=== PATIENT | female | born 1945 | race Caucasian/White ===

== ENCOUNTER 2017-06-04 11:55 | Outpatient (CLI) | payer MEDICARE, OTHER ==
--- NOTE | 2017-06-04 13:05 | MRI Report ---
EXAM: MRI LUMBAR SPINE WITHOUT CONTRAST EXAM DATE: 06/04/2017 12:43 PM. CLINICAL HISTORY: 72-year-old with back pain and bilateral feet numbness with numbness extending to l egs COMPARISON: None. TECHNIQUE: Multiplanar, multisequence T1-weighted and fluid-sensitive sequences of the lumbar spine f rom T12 to S1 without contrast. Other: None. FINDINGS: Spinal Cord: The conus terminates at L1-L2. The conus medullaris and cauda equina are unremarkable. Alignment: There is 2-3 mm of grade I retrolisthesis of L1 on L2, L2 on L3, and L3 on L4. Bone Marrow: Five dta-idi-cnczuhp lumbar vertebral bodies are assumed. There is a chronic-appearing L 1 vertebral body compression fracture with approximately 35% vertebral body height loss anteriorly. N o bony retropulsion. No acute fracture. There appears to be a vertebral body hemangioma seen involvin g the left aspect of the L2 vertebral body with involvement of the left pedicle. There appears to be a vertebral body hemangioma within the L4 vertebral body with evidence of STIR signal hyperintensity suggesting potential atypical hemangioma. No other marrow replacing lesion. There is ongoing Schmorl' s node formation seen along the superior endplate of L4 and superior endplate of L5. Disk Levels/Facets: T12-L1: Moderate endplate degenerative change and Schmorl's node formation. Mild loss of disk height and disk desiccation. Small posterior disk bulge and bilateral arthritic facet disease. Minimal spina l canal stenosis. No significant neural foraminal narrowing. L1-L2: Mild to moderate endplate degenerative change and Schmorl's node formation. Mild to moderate l oss of disk height and disk desiccation. Small posterior disk bulge, ligamentum flavum thickening, ar thritic facet disease, and prominent dorsal epidural fat. Mild spinal canal stenosis. Minimal bilater al neural foraminal narrowing. L2-L3: Mild end plate degenerative change with Schmorl's node formation. Mild to moderate loss of dis k height and disk desiccation. Small posterior disk bulge, ligamentum flavum thickening, arthritic fa cet disease, and prominent dorsal epidural fat. Fluid is seen within the facets bilaterally. Mild spi nal canal stenosis. Mild bilateral neural foraminal narrowing. L3-L4: Minimal to mild degenerative change and Schmorl's node formation. Mild loss of disk I fundus d esiccation. Small posterior disk bulge, ligament thickening, and arthritic facet disease. Slight effa cement of the lateral recesses. Mild bilateral neural foraminal narrowing. L4-L5: Mild endplate degenerative change and Schmorl's node formation. Mild loss of disk height and d isk desiccation. Small posterior disk bulge with superimposed left foraminal to far lateral disk prot rusion. Ligamentum flavum thickening, arthritic facet disease, and prominent dorsal tilt. Mild spinal canal stenosis and effacement of the lateral recesses. Hmnh-kz-xtniulze right and moderate left neur al foraminal narrowing. L5-S1: Minimal endplate degenerative change with mild loss of disk height and disk desiccation. Small posterior disk bulge and arthritic facet disease. Effacement of lateral recesses with contact of the traversing left S1 nerve root. Minimal bilateral neural foraminal narrowing. Musculature: Moderate fatty atrophy of the multifidus muscles beginning at L4 and extending to the sa maylin. Other: The partially visualized retroperitoneum is unremarkable. IMPRESSION: 1. There is 2-3 mm of grade I retrolisthesis of L1 on L2, L2 on L3, and L3 on L4. 2. There is a chronic-appearing L1 vertebral body compression fracture with approximately 35% vertebr al body height loss anteriorly. No bony retropulsion. 3. At L4-L5 there is a small left foraminal and far lateral disk protrusion. 4. Multilevel degenerative changes. L1-L2: Mild spinal canal stenosis. Minimal bilateral neural foraminal narrowing. L2-L3: Mild spinal canal stenosis. Mild bilateral neural foraminal narrowing. L3-L4: Slight effacement of the lateral recesses. Mild bilateral neural foraminal narrowing. L4-L5: Mild spinal canal stenosis and effacement of the lateral recesses. Qwor-ci-yljrsgbx right and moderate left neural foraminal narrowing. L5-S1: Effacement of lateral recesses with contact of the traversing left S1 nerve root. Minimal bila teral neural foraminal narrowing. Comment: The following findings are so common in adults without low back pain that while we report th eir presence, they must be interpreted with caution and in the context of the clinical situation. (Re arpit Poe et al, Spine 2001) Prevalence of findings in patients without low back pain: Disk degeneration (any evidence): 92% Disk desiccation/T2 signal loss: 83% Disk height loss: 56% Disk bulge: 64% Disk protrusion: 32% Annular tear/high intensity zone: 38% [facility] Referring Provider Line: [phone] SITE ID: [id number]
== END 2017-06-04 11:56 | disposition home or self-care (01) ==
LOC: DI 11:55
PROVIDERS: ATTEND Internal Medicine
DX: M51.36 Other intervertebral disc degeneration, lumbar region (principal); M47.896 Other spondylosis, lumbar region; M51.26 Other intervertebral disc displacement, lumbar region; M43.16 Spondylolisthesis, lumbar region; M48.56XD Collapsed vertebra, not elsewhere classified, lumbar region, subsequent encounter for fracture with routine healing; M51.37 Other intervertebral disc degeneration, lumbosacral region; M47.897 Other spondylosis, lumbosacral region
CPT/HCPCS: 72148

== ENCOUNTER 2017-06-13 14:08 | Outpatient (CLI) | payer MEDICARE, OTHER ==
--- NOTE | 2017-06-13 18:31 | Ultrasound Report ---
LEFT BREAST ULTRASOUND: 06/13/2017 CLINICAL INDICATION: Painful palpable abnormality left lower outer posterior breast. TECHNIQUE: Real-time scanning was performed with hvac sales representative static images obtained. FINDINGS: Ultrasound of the painful palpable region identified by the patient was performed. Unremarkable parenchymal lobules are seen. No discrete solid or cystic mass is identified. No sonographically suspicious findings are seen. IMPRESSION: NEGATIVE EXAMINATION. RECOMMENDATION: Routine annual screening unless otherwise clinically indicated. BIRADS category: 1, negative. TD: 06/13/2017 18:30
--- NOTE | 2017-06-13 18:39 | Mammography Report ---
DIGITAL DIAGNOSTIC BILATERAL MAMMOGRAM: 06/13/2017 CLINICAL INDICATION: Painful palpable abnormality left lower outer posterior breast. TECHNIQUE: Bilateral CC and MLO views, left true lateral and laterally exaggerated craniocaudal views. A marker was placed at the site of tender palpable abnormality identified by the patient in the left lower outer posterior breast. COMPARISON: 01/24/2015, 12/09/2004, 01/28/2004. FINDINGS: The breasts demonstrate scattered fibroglandular densities bilaterally. Coarse and punctate, typically benign calcifications are present. No suspicious masses, clustered microcalcifications, or regions of architectural distortion are identified. Please also refer to left breast ultrasound of the same day. IMPRESSION: BENIGN FINDINGS. RECOMMENDATION: Routine annual screening unless otherwise clinically indicated. BIRADS category 2 benign findings. STANDARD QUALIFYING STATEMENTS 1. This examination was reviewed with the aid of Computed-Aided Detection (CAD). 2. A negative or benign imaging report should not delay biopsy if clinically suspicious findings are present. Consider surgical consultation if warranted. More than 5% of cancers are not identified by imaging. 3. Dense breasts may obscure an underlying neoplasm. TD: 06/13/2017 18:38
== END 2017-06-13 14:09 | disposition home or self-care (01) ==
LOC: DI 14:08
PROVIDERS: ATTEND Internal Medicine
DX: N63.23 Unspecified lump in the left breast, lower outer quadrant (principal)
CPT/HCPCS: 76642; 77066

== ENCOUNTER 2017-07-23 08:44 | Day surgery (SDC) | payer MEDICARE, OTHER ==
[~2017-07-23 08:44] MED LIST: ceFAZolin 2 GM/50 ML 2 GM/50 ML BAG IV ONE
[2017-07-23] MEDS ORDERED: LACTATED RINGERS 1,000 ML IV ONE (08:49)
[2017-07-23] MEDS ORDERED: BUPIVACAINE 0.5% PF 30 ML VIAL ONE (11:00)
[2017-07-23] MEDS ORDERED: BUPIVACAINE 0.5%-EPI 1:200000 PF 30 ML VIAL SUBQ ONE (11:02)
[2017-07-23] MEDS ORDERED: PROPOFOL 200 MG/20 ML VIAL IVP ONE (11:15)
[2017-07-23] MEDS ORDERED: fentaNYL 100 MCG/2 ML VIAL IVP ONE (11:15)
[2017-07-23] MEDS ORDERED: ONDANSETRON 4 MG/2 ML VIAL IVP ONE (11:15)
[2017-07-23] MEDS ORDERED: DEXAMETHASONE 4 MG/ML VIAL IVP ONE (11:15)
--- NOTE | 2017-07-23 11:49 | OPERATIVE REPORT ---
Operative Report - General Procedure Date: 07/23/17 Planned Procedure: LEFT excisional breast biopsy Pre-Op Diagnosis: Painful LEFT breast mass Procedure Performed: LEFT excisional breast biopsy Post Op Diagnosis: Same - Procedure Note Primary Surgeon: Eleuterio Mora MD Anesthesia Provider: Neha Walker CRNA Anesthesia Technique: General ET tube, Local (30 mL 1/2% marcaine) IV Fluids (mL): 600 Estimated Blood Loss (mL): 5 Complications: None. - Other Other Information/Narrative: OPERATIVE DESCRIPTION/REPORT: After verbal and written informed consent was obtained detailing the risks of infection, bleeding requiring transfusion with its risks, nerve injury, and , and after I met with the patient confirming the surgery and the site of the surgery and after initialing the site of the surgery with a surgical marker , the patient was brought to the operative suite and placed supine on the operating table. Great care was taken to avoid pressure points to prevent pressure necrosis or nerve injury. Monitoring devices were applied along with TEDs and pneumatic compressive stockings (to prevent DVT). The patient received preoperative antibiotics for surgical prophylaxis. Neha Walker sedated and anethetized the patient for the entire procedure. The patient was prepped and draped in the usual sterile manner. With the patient draped my initials were clearly visible. A "time in" then confirmed that the patient was identified with 3 identifiers (name, birthdate and medical record number), the history and physical was in the chart, the signed consent confirming the procedure was in the chart, the patient was in the correct position, the aforementioned prophylactic measures were in place or given, we had the correct personnel and equipment to complete the procedure and that anesthesia, surgery and nursing were given an opportunity to express any concerns. With the agreement of everyone in the room, we proceeded with the operation. After adequate local anesthesia was administered using 1/2% marcaine, the skin overlying the mass was incised in a curvilinear fashion. Dissection down to the mass was performed using a combination of Metzenbaum scissors and Bovie electrocautery. Every attempt was made to get approximately 1 cm of normal tissue around the lesion. The specimen was marked with a long stitch laterally , a short stitch superiorly and a double stitch deep. Meticulous hemostasis was obtained using Bovie electrocautery. The subcutaneous tissues were approximated using interrupted 2-0 Vicryl. The skin incision was approximated with 4-0 Monocryl in a subcuticular fashion. The skin was prepped with benzoin and steristrips were applied. A dressing was then applied. At this point a time out was performed that confirmed that all the counts were correct, the procedure that was performed, the blood loss, the IV fluids administered, and the patients condition. Having tolerated the procedure well, the patient was subsequently taken to recovery room in good and stable condition.
[2017-07-23 12:38] VITALS: BP 114/10
== END 2017-07-23 08:45 | disposition home or self-care (01) ==
LOC: SDS 08:44
PROVIDERS: ATTEND Surgery
PROC: 0HBU0ZX Excision of Left Breast, Open Approach, Diagnostic (ICD-10-PCS; principal; 2017-07-23 10:00)
DX: N63.24 Unspecified lump in the left breast, lower inner quadrant (principal); N63.23 Unspecified lump in the left breast, lower outer quadrant; N64.4 Mastodynia; N60.22 Fibroadenosis of left breast; R92.0 Mammographic microcalcification found on diagnostic imaging of breast
CPT/HCPCS: 19120; J0690; J7120; 88307

== ENCOUNTER 2018-05-05 08:40 | Outpatient (CLI) | payer MEDICARE, OTHER ==
--- NOTE | 2018-05-05 11:01 | CT Report ---
Reason: NEW ONSET HEAD ACHES Procedure Date: 05/05/2018 Accession Number: [id number] / [id number] Procedure: CT - Head W/O CPT Code: FULL RESULT: EXAM: CT HEAD EXAM DATE: 05/05/2018 09:11 AM. CLINICAL HISTORY: New onset headaches. COMPARISON: HEAD W/O 04/11/2013 10:18 PM. TECHNIQUE: Multiaxial CT images were obtained from the foramen magnum to the vertex. Reformats: Sagittal and coronal. IV contrast: None. In accordance with CT protocol optimization, one or more of the following dose reduction techniques were utilized for this exam: automated exposure control, adjustment of mA and/or KV based on patient size, or use of iterative reconstructive technique. FINDINGS: Parenchyma: No intraparenchymal hemorrhage. No evidence of mass, midline shift, or CT findings of infarction. Lopez-white differentiation is distinct. Extraaxial Spaces: Normal for age. No subdural or epidural collections identified. Ventricles: Normal in size and position. Sinuses and Orbits: There is partial opacification of the floor of the right maxillary sinus, not fully visualized. The imaged orbits and mastoids are unremarkable. Bones: No evidence of fracture or calvarial defect. Other: None. IMPRESSION: Right maxillary sinusitis, incompletely imaged. [facility]
== END 2018-05-05 08:41 | disposition home or self-care (01) ==
LOC: DI 08:40
PROVIDERS: ATTEND Internal Medicine
DX: J32.0 Chronic maxillary sinusitis (principal)
CPT/HCPCS: 70450

== ENCOUNTER 2018-07-08 12:50 | Outpatient (CLI) | payer MEDICARE, OTHER ==
--- NOTE | 2018-07-10 09:36 | DEXA Report ---
Reason: OSTEOPENIA Procedure Date: 07/08/2018 Accession Number: [id number] / [id number] Procedure: DEX - Dexa Spine and/or Hip CPT Code: FULL RESULT: EXAM: Dexa Spine and/or Hip DATE: 07/08/2018 1:33 PM CLINICAL HISTORY: OSTEOPENIA TECHNIQUE: Dual energy x-ray absorptiometry (DXA) was performed on a [employer] System. Regions measured are the AP Spine, femoral neck, and if needed forearm. COMPARISON: None. In accordance with the International Society for Clinical Densitometry (ISCD) guidelines, data from previous exams may be reanalyzed using current recommendations and techniques. This is done to allow a more accurate basis for comparison with the current study. FINDINGS: The data for the lumbar spine is as follows: BMD (g/cm/cm) T-SCORE Z-SCORE REGION L1 0.998 -1.1 0.1 L2 0.938 -2.2 -1.0 L3 0.878 -2.7 -1.4 L4 0.930 -2.3 -1.0 TOTAL 0.934 -2.0 -0.8 NOTE: All evaluable vertebrae are used for classification The data for the hip is as follows: BMD (g/cm/cm) T-SCORE Z-SCORE REGION Neck 0.805 -1.7 -0.1 TOTAL 0.708 -2.4 -1.0 NOTE: The femoral neck or total proximal femur, whichever is lowest, is used for classification. IMPRESSION: THE WHO CLASSIFICATION BASED ON THE INTERNATIONAL REFERENCE STANDARD IS OSTEOPENIA. THE FRACTURE RISK IS INCREASED. RECOMMENDATION: Patients with diagnosis of osteoporosis or osteopenia should have regular bone mineral density assessment. For those eligible for Medicare, routine testing is allowed once every 2 years. Testing frequency can be increased for patients who have rapidly progressing disease or for those who are receiving medical therapy to restore bone mass. COMMENT: World Health Organization (WHO) definitions for osteoporosis and osteopenia: NORMAL BMD: T-score at -1.0 or higher, fracture risk is low OSTEOPENIA BMD: T-score between -1.0 and -2.5, fracture risk is increased. OSTEOPOROSIS BMD: T-score at -2.5 or lower, fracture risk is high. National Osteoporosis Foundation recommends: 1. Obtain adequate dietary calcium (at least 1200 mg per day) and vitamin D (400-800 international units per day). 2. Participate, as appropriate, in regular weightbearing and muscle-strengthening exercise. 3. Avoid tobacco use and reduce alcohol and caffeine intake. 4. For more detailed information see the website at www.NOF.org.
== END 2018-07-08 12:51 | disposition home or self-care (01) ==
LOC: DI 12:50
PROVIDERS: ATTEND Internal Medicine
DX: M85.89 Other specified disorders of bone density and structure, multiple sites (principal)
CPT/HCPCS: 77080

== ENCOUNTER 2018-07-08 12:52 | Outpatient (CLI) | payer MEDICARE, OTHER ==
--- NOTE | 2018-07-08 15:27 | Mammography Report ---
Reason: SCREENING MAMMO Procedure Date: 07/08/2018 Accession Number: [id number] / [id number] Procedure: MAGGIE - Screening Mammo w/Otto CPT Code: FULL RESULT: EXAM: Screening Mammo w/Otto DATE: 07/08/2018 2:11 PM CLINICAL HISTORY: Screening encounter. History of benign painful lump removal from the left breast. TECHNIQUE: Bilateral CC and MLO views were obtained. COMPARISON: 06/13/2017 and 01/24/2015. FINDINGS: The breasts demonstrate heterogeneously dense fibroglandular parenchyma bilaterally. Postsurgical changes are seen in the left breast. No suspicious masses, clustered microcalcifications, or regions of architectural distortion are identified. IMPRESSION: Benign findings RECOMMENDATION: Routine annual screening unless otherwise clinically indicated. BIRADS CATEGORY 2: Benign findings STANDARD QUALIFYING STATEMENTS: 1. This examination was not reviewed with the aid of Computer-Aided Detection (CAD). 2. A negative or benign imaging report should not delay biopsy if clinically suspicious findings are present. Consider surgical consultation if warrented. More than 5% of cancers are not identified by imaging. 3. Dense breasts may obscure an underlying neoplasm. 4. This examination was reviewed with the aid of 3D breast imaging (tomosynthesis).
== END 2018-07-08 12:53 | disposition home or self-care (01) ==
LOC: DI 12:52
PROVIDERS: ATTEND Internal Medicine
DX: Z12.31 Encounter for screening mammogram for malignant neoplasm of breast (principal)
CPT/HCPCS: 77063; 77067

== ENCOUNTER 2019-09-02 16:39 | Outpatient (CLI) | payer MEDICARE, OTHER | END 2019-09-02 16:40 | disposition home or self-care (01) | LOC: COV 16:39 | PROVIDERS: ATTEND Family Medicine | DX: R50.9 Fever, unspecified (principal); R06.02 Shortness of breath; R53.83 Other fatigue | CPT/HCPCS: 81599 ==

== ENCOUNTER 2019-11-30 09:36 | Outpatient (CLI) | payer MEDICARE, OTHER ==
--- NOTE | 2019-12-01 08:31 | Ultrasound Report ---
LIMITED ULTRASOUND OF LEFT BREAST: 11/30/2019 CLINICAL: Palpable left breast lump and focal pain. Comparison is made to exams dated: 11/30/2019 mammogram, 07/08/2017 mammogram, 06/13/2017 ultrasound, 06/13/2017 mammogram, 01/24/2015 mammogram - [facility], and 10/24/2012 mammogram - [facility]. Real-time ultrasound of the left breast 3 o'clock region was performed. Lopez scale images of the re al-time examination were reviewed. No significant abnormalities were seen sonographically in the left breast. IMPRESSION: NEGATIVE There is no sonographic evidence of malignancy. There is no abnormality seen in the left breast to correspond with the area of clinical concern and p alpable abnormality indicated by triangular marker at 3 o'clock in the posterior depth, however, jammie mmend clinical followup for persistent or worsening symptoms and/or development of any clinically mirtha picious findings. A 1 year screening mammogram is recommended. Findings and recommendations were conveyed to the patient during today's visit. This exam was interpreted at Station ID: [id number]. Electronically Signed By: Spencer Hung M.D. aty/:11/30/2019 11:55:25 Ultrasound BI-RADS: 1 Negative BI-RADS CATEGORY: (1) - 1 RECOMMENDATION: (ANNUAL) - Recommend routine annual screening mammography. [id number] 1 year screening LATERALITY: (B)
--- NOTE | 2019-12-01 08:31 | Mammography Report ---
BILATERAL DIGITAL DIAGNOSTIC MAMMOGRAM 3D/2D: 11/30/2019 CLINICAL: Palpable left breast lump. Comparison is made to exams dated: 07/08/2017 mammogram, 06/13/2017 ultrasound, 06/13/2017 mammogram, 03/2015 mammogram - [facility], 10/24/2012 mammogram, and 12/07/2008 mammogram - [facility]. The tissue of both breasts is heterogeneously dense. This may lower the sensitivity of mammography. There are benign calcifications in both breasts that are not significantly changed. The left breast has stable post-operative findings. No significant masses, calcifications, or other findings are seen in either breast. IMPRESSION: INCOMPLETE: NEEDS ADDITIONAL IMAGING EVALUATION There is no abnormality seen in the left breast to correspond with the area of clinical concern and palpable abnormality indicated by triangular marker at 3 o'clock in the posterior depth. However, fu rther evaluation with sonogram is recommended which is scheduled to immediately follow this examinati on. This exam was interpreted at Station ID: [id number]. NOTE: For mammograms, a report in lay terms will be sent to the patient. Approximately 15% of breast malignancies will not be visualized mammographically. In the management of a palpable breast mass, a negative mammogram must not discourage biopsy of a clinically suspicious lesion. Electronically Signed By: Spencer Hung M.D. aty/:11/30/2019 11:46:13 ACR BI-RADS Category 0: Incomplete 3340F PARENCHYMAL PATTERN: (D) - The breast(s) demonstrate(s) heterogeneously dense fibroglandular suresh farah. BI-RADS CATEGORY: (0) - 0 Ultrasound [id number] Immediate follow-up LATERALITY: (L)
== END 2019-11-30 09:37 | disposition home or self-care (01) ==
LOC: DI 09:36
PROVIDERS: ATTEND Internal Medicine
DX: N64.4 Mastodynia (principal); N63.24 Unspecified lump in the left breast, lower inner quadrant
CPT/HCPCS: 76642; 77066

== ENCOUNTER 2020-03-30 12:18 | Outpatient (CLI) | payer MEDICARE, OTHER ==
[2020-03-30] MEDS ORDERED: IOVERSOL 320 100 ML VIAL IVP ONE ×2 (12:36→18:31)
[2020-03-30] MEDS ORDERED: IOVERSOL 320 50 ML VIAL ONE (12:36)
[2020-03-30 12:46] LABS: CREATININE 0.8 mg/dL (0.4-1.0)
--- NOTE | 2020-03-30 15:08 | CT Report ---
PROCEDURE: Abdomen/Pelvis W INDICATIONS: SEVERE ABD PX/NAUSEA CONTRAST: IV CONTRAST: Optiray 320 ml: 100 PO CONTRAST: Optiray 320 ml50 TECHNIQUE: After the administration of oral and IV contrast, 5 mm thick sections acquired from the diaphragms to the symphysis. 5 mm thick coronal and sagittal reformats were acquired. For radiation dose reducti on, the following was used: automated exposure control, adjustment of mA and/or kV according to cain ent size. COMPARISON: None. FINDINGS: Image quality: Excellent. ABDOMEN: Lung bases: Lung bases are clear. Heart size is mildly prominent. Solid organs: Liver and spleen a re normal in size and enhancement. Mild hepatic steatosis is present. Gallbladder is unremarkable Bi liary system is non dilated. Pancreas enhances normally. No adrenal nodules. Kidneys demonstrate n ormal size and enhancement, without hydronephrosis. Right renal cyst is noted. Peritoneum and bowel: Bowel loops are nonobstructed. There is minimal appearance of thickening of sm all bowel loops within the left hemiabdomen. Mild colonic stool. No free fluid or air. Nodes and vessels: No retroperitoneal or mesenteric adenopathy by size criteria. Aorta and inferior vena cava are normal in size. Miscellaneous: No ventral hernias. Mild hiatal hernia. PELVIS: Genitourinary: Bladder wall thickness is normal. Miscellaneous: No inguinal hernias or adenopathy. Bones: No suspicious bony lesions. No vertebral body compression fractures. IMPRESSION: 1. Minimal appearance of small bowel thickening within the left hemiabdomen. This is overall nonspeci fic. While this could be secondary to incomplete distention, enteritis cannot be excluded. 2. Moderate stool without obstruction. Recommend correlation constipation. The above findings were discussed with and Lauren on 03/30/2020 at 3:00 PM. Reviewed by: Sonia Pressley MD on 03/30/2020 3:06 PM PST Approved by: Sonia Pressley MD on 03/30/2020 3:06 PM PST Station ID: [id number]
[2020-03-30] MEDS ORDERED: IOVERSOL 320 50 ML VIAL PO ONE (18:31)
== END 2020-03-30 12:19 | disposition home or self-care (01) ==
LOC: DI 12:18
PROVIDERS: ATTEND Internal Medicine
DX: R10.9 Unspecified abdominal pain (principal); R11.0 Nausea; Z79.899 Other long term (current) drug therapy
CPT/HCPCS: 36415; 74177; 82565; Q9967

== ENCOUNTER 2020-05-12 08:26 | Outpatient (CLI) | payer MEDICARE, OTHER ==
--- NOTE | 2020-05-13 09:54 | Ultrasound Report ---
LIMITED ULTRASOUND OF LEFT BREAST: 05/12/2020 CLINICAL: Palpable left breast lump. Comparison is made to exams dated: 05/12/2020 mammogram, 11/30/2019 ultrasound, 11/30/2019 mammogram, mammogram, 06/13/2017 ultrasound, and 06/13/2017 mammogram - [facility]. Color flow ultrasound of the left breast 3 o'clock region was performed. Lopez scale images of the r eal-time examination were reviewed. No significant abnormalities were seen sonographically in the left breast. IMPRESSION: NEGATIVE There is no sonographic evidence of malignancy. There is no abnormality seen in the left breast to correspond with the palpable abnormality at 3 o'cl ock, however, clinical correlation is recommended. A 1 year screening mammogram is recommended. Future imaging is recommended as follows: 11/30/2020 sc reening mammogram. This exam was interpreted at Station ID: [id number]. Electronically Signed By: Stuart valverde/gavino:05/12/2020 11:03:12 Ultrasound BI-RADS: 1 Negative BI-RADS CATEGORY: (1) - 1 RECOMMENDATION: (ANNUAL) - Recommend routine annual screening mammography. [id number] 1 year screening LATERALITY: (B)
--- NOTE | 2020-05-13 09:54 | Mammography Report ---
UNILATERAL LEFT DIGITAL DIAGNOSTIC MAMMOGRAM 3D/2D: 05/12/2020 CLINICAL: Palpable left breast lump. Comparison is made to exams dated: 11/30/2019 mammogram, 07/08/2017 mammogram, and 06/13/2017 mammogram - [facility]. The tissue of left breast is heterogeneously dense. This may lower t he sensitivity of mammography. There is a post surgical scar in the left breast at 3 o'clock that is not significantly changed and c orrelates with palpable abnormality. No significant masses, calcifications, or other findings are seen in the breast. IMPRESSION: INCOMPLETE: NEEDS ADDITIONAL IMAGING EVALUATION Targeted ultrasound is recommended for further evaluation, which will be performed on the same day im mediately following this exam. Future imaging is recommended as follows: 11/30/2020 screening mammogram. This exam was interpreted at Station ID: [id number]. NOTE: For mammograms, a report in lay terms will be sent to the patient. Approximately 15% of breast malignancies will not be visualized mammographically. In the management of a palpable breast mass, a negative mammogram must not discourage biopsy of a clinically suspicious lesion. Electronically Signed By: Stuart valverde/gavino:05/12/2020 10:55:35 ACR BI-RADS Category 0: Incomplete 3340F PARENCHYMAL PATTERN: (D) - The breast(s) demonstrate(s) heterogeneously dense fibroglandular suresh farah. BI-RADS CATEGORY: (0) - 0 Ultrasound [id number] Immediate follow-up LATERALITY: (L)
== END 2020-05-12 08:27 | disposition home or self-care (01) ==
LOC: DI 08:26
PROVIDERS: ATTEND Internal Medicine
DX: N63.22 Unspecified lump in the left breast, upper inner quadrant (principal)

== ENCOUNTER 2021-06-08 16:20 | Outpatient (CLI) | payer MEDICARE, OTHER ==
[2021-06-08 16:33] LABS: BILIRUBIN,URINE NEGATIVE (NEGATIVE); GLUCOSE, URINE (UA) NEGATIVE (NEGATIVE); KETONES,URINE (UA) NEGATIVE (NEGATIVE); LEUKOCYTE ESTERASE, URINE TRACE (NEGATIVE); NITRITE,URINE POSITIVE (NEGATIVE); OCCULT BLOOD,URINE NEGATIVE (NEGATIVE); PROTEIN,URINE NEGATIVE (NEGATIVE); UROBILINOGEN,URINE 0.2 (NORMAL) E.U./dL (NORMAL)
[2021-06-08 16:49] LABS: BACTERIA,URINE Many /HPF (None Seen); CLARITY,URINE HAZY (CLEAR); RBC,URINE None Seen /HPF (0-5); SQUAMOUS EPITHELIAL CELL,UR RARE Squamous (<= Few)
[2021-06-08 17:11] LABS: BUN - BLOOD UREA NITROGEN 20 mg/dL (6-20); CALCIUM 9.3 mg/dL (8.5-10.3); CARBON DIOXIDE - CO2 27 mmol/L (21-32); CHLORIDE 101 mmol/L (101-111); CK- CREATINE KINASE 72 IU/L (22-269); CREATININE 0.7 mg/dL (0.4-1.0); GFR - MDRD 81 (>89); GLUCOSE 107 mg/dL (70-100); MAGNESIUM 2.1 mg/dL (1.7-2.8); SODIUM 135 mmol/L (135-145)
[2021-06-08 17:17] LABS: THYROID STIMULATING HORMONE 1.93 uIU/mL (0.34-5.60)
[2021-06-08 17:29] LABS: CRP - C-REACTIVE PROTEIN < 1.0 mg/dL (0-1.0)
[2021-06-08 20:08] LABS: ESTIMATED AVERAGE GLUCOSE 111 mg/dL (70-100); HEMOGLOBIN A1c% 5.5 % (4.27-6.07)
[2021-06-10 15:11] LABS: ANA SCREEN NEGATIVE (NEGATIVE)
== END 2021-06-08 16:21 | disposition home or self-care (01) ==
LOC: LAB.R 16:20
PROVIDERS: ATTEND Internal Medicine
DX: G62.9 Polyneuropathy, unspecified (principal); R53.1 Weakness; R32 Unspecified urinary incontinence; R30.0 Dysuria
CPT/HCPCS: 80048; 81001; 81599; 82550; 82607; 83036; 83735; 84443; 85651; 86038; 86140; 86780; 87086; 87181

== ENCOUNTER 2021-11-01 10:32 | Outpatient (CLI) | payer MEDICARE, OTHER ==
[2021-11-01 11:27] LABS: THYROID STIMULATING HORMONE 1.77 uIU/mL (0.34-5.60)
[2021-11-01 14:33] LABS: ESTIMATED AVERAGE GLUCOSE 111 mg/dL (70-100); HEMOGLOBIN A1c% 5.5 % (4.27-6.07)
[2021-11-03 13:10] LABS: A/G RATIO 1.4 (0.7-1.7); ALBUMIN 4.2 g/dL (2.9-4.4); ALPHA-1-GLOBULIN 0.2 g/dL (0.0-0.4); ALPHA-2-GLOBULIN 0.6 g/dL (0.4-1.0); GAMMA GLOBULIN 1.1 g/dL (0.4-1.8); GLOBULIN, TOTAL 2.9 g/dL (2.2-3.9); PROTEIN TOTAL 7.1 g/dL (6.0-8.5)
[2021-11-03 14:08] LABS: IMMUNOGLOBULIN A 297 mg/dL (64-422); IMMUNOGLOBULIN G 1134 mg/dL (586-1602); IMMUNOGLOBULIN M 59 mg/dL (26-217); METHYLMALONIC ACID SERUM 128 nmol/L (0-378)
[2021-11-04 12:08] LABS: VITAMIN B6 PLASMA 145.7 ug/L (3.4-65.2)
== END 2021-11-01 10:33 | disposition home or self-care (01) ==
LOC: LAB 10:32
PROVIDERS: ATTEND Student in an Organized Health Care Education/Training Program
DX: G62.9 Polyneuropathy, unspecified (principal)
CPT/HCPCS: 36415; 81599; 82607; 82784; 83036; 83921; 84155; 84156; 84165; 84166; 84207; 84443; 86334

== ENCOUNTER 2022-01-23 08:00 | Outpatient (CLI) | payer MEDICARE, OTHER ==
[2022-01-23 15:56] LABS: BASOPHILS % (AUTO) 0.5 %; EOSINOPHILS # (AUTO) 0.1 10^3/uL (0.0-0.7); EOSINOPHILS % (AUTO) 1.4 %; HGB - HEMOGLOBIN 12.7 g/dL (12.0-16.0); LYMPHOCYTES # (AUTO) 1.9 10^3/uL (1.5-3.5); LYMPHOCYTES % (AUTO) 24.2 %; MEAN CORPUSCULAR HEMOGLOBIN 29.7 pg (27.0-31.0); MEAN CORPUSCULAR HGB CONC 32.6 g/dL (32.0-36.0); MEAN CORPUSCULAR VOLUME 91.1 fL (81.0-99.0); MEAN PLATELET VOLUME 10.5 fL (7.9-10.8); MONOCYTES # (AUTO) 0.5 10^3/uL (0.0-1.0); MONOCYTES % (AUTO) 6.3 %; NEUTROPHILS # (AUTO) 5.2 10^3/uL (1.5-6.6); NEUTROPHILS % (AUTO) 67.5 %; PLT - PLATELET COUNT 271 10^3/uL (130-450); RED BLOOD COUNT 4.28 10^6/uL (4.20-5.40); RED CELL DISTRIBUTION WIDTH 13.2 % (12.0-15.0); WHITE BLOOD COUNT 7.7 x10^3/uL (4.8-10.8)
[2022-01-23 16:17] LABS: ALBUMIN 4.5 g/dL (3.2-5.5); ALBUMIN/GLOBULIN RATIO 1.3 (1.0-2.2); ALKALINE PHOSPHATASE 41 IU/L (42-121); ALT ALANINE AMINOTRANSFERASE 11 IU/L (10-60); AST ASPARTATE AMINOTRANSFERASE 19 IU/L (10-42); BILIRUBIN,TOTAL 0.8 mg/dL (0.2-1.0); BUN - BLOOD UREA NITROGEN 17 mg/dL (6-20); CALCIUM 9.6 mg/dL (8.5-10.3); CARBON DIOXIDE - CO2 28 mmol/L (21-32); CHLORIDE 102 mmol/L (101-111); CHOL/HDL RATIO 2.9 (<4.4); CHOLESTEROL 262 mg/dL; CREATININE 0.6 mg/dL (0.4-1.0); GFR - MDRD 97 (>89); GLUCOSE 106 mg/dL (70-100); HDL CHOLESTEROL 89 mg/dL; LDL CHOLESTEROL,CALCULATED 160 mg/dL; LDL/HDL RATIO 1.8 (<4.4); POTASSIUM 4.2 mmol/L (3.5-5.0); SODIUM 138 mmol/L (135-145); TOTAL PROTEIN 8.1 g/dL (6.7-8.2); TRIGLYCERIDES 63 mg/dL; VLDL CHOLESTEROL 13 mg/dL
[2022-01-23 20:29] LABS: ESTIMATED AVERAGE GLUCOSE 111 mg/dL (70-100); HEMOGLOBIN A1c% 5.5 % (4.27-6.07)
== END 2022-01-23 23:59 | disposition home or self-care (01) ==
LOC: LAB.R 08:00
PROVIDERS: ATTEND Internal Medicine
DX: Z00.00 Encounter for general adult medical examination without abnormal findings (principal); H26.9 Unspecified cataract; R74.8 Abnormal levels of other serum enzymes; H91.90 Unspecified hearing loss, unspecified ear; R73.01 Impaired fasting glucose; I44.7 Left bundle-branch block, unspecified; M85.80 Other specified disorders of bone density and structure, unspecified site; G62.9 Polyneuropathy, unspecified; F43.10 Post-traumatic stress disorder, unspecified
CPT/HCPCS: 80053; 80061; 83036; 83721; 84443; 85025

== ENCOUNTER 2022-05-08 08:00 | Outpatient (CLI) | payer MEDICARE, OTHER ==
[2022-05-08 12:18] LABS: ESTIMATED AVERAGE GLUCOSE 108 mg/dL (70-100); HEMOGLOBIN A1c% 5.4 % (4.27-6.07)
== END 2022-05-08 23:59 | disposition home or self-care (01) ==
LOC: LAB.R 08:00
PROVIDERS: ATTEND Internal Medicine
DX: R03.0 Elevated blood-pressure reading, without diagnosis of hypertension (principal); R73.9 Hyperglycemia, unspecified; R42 Dizziness and giddiness; R11.0 Nausea
CPT/HCPCS: 83036

== ENCOUNTER 2022-05-25 17:03 | Outpatient (CLI) | payer MEDICARE, OTHER ==
--- NOTE | 2022-05-25 18:06 | XRAY Report ---
PROCEDURE: Chest 2 View X-Ray INDICATIONS: COUGH,DYSPNEA TECHNIQUE: 2 views of the chest were acquired. COMPARISON: Chest radiograph dated 04/11/2013. FINDINGS: Surgical changes and devices: None. Lungs and pleura: No pleural effusions or pneumothorax. There is no focal infiltrate. Oval nodular d ensity is seen in lateral aspect of right lower lung field measures 2 x 1.2 cm in size not seen in 20 13 study. Mediastinum: Mildly tortuous thoracic aorta is seen. Heart size is normal. Bones and chest wall: No suspicious bony abnormalities. Soft tissues appear unremarkable. IMPRESSION: Oval nodule in lateral aspect of right lower lung field concerning for pulmonary nodule of indetermin ant etiology. Suggest CT of chest for further evaluation. COPD. No pleural effusion or pneumothorax. No focal infiltrate. Findings were reported to Dr. Aguilar at 6:00 PM on 05/25/2022. Reviewed by: Anish Bassett MD on 05/25/2022 6:04 PM PST Approved by: Anish Bassett MD on 05/25/2022 6:04 PM PST Station ID: [id number]
== END 2022-05-25 17:04 | disposition home or self-care (01) ==
LOC: DI 17:03
PROVIDERS: ATTEND Internal Medicine
DX: R05.9 Cough, unspecified (principal); R06.00 Dyspnea, unspecified; R91.1 Solitary pulmonary nodule

== ENCOUNTER 2022-06-01 12:56 | Outpatient (CLI) | payer MEDICARE, OTHER ==
[2022-06-01] MEDS ORDERED: iohexoL-300 100 ML VIAL ONE (13:07)
[2022-06-01] MEDS ORDERED: iohexoL-300 100 ML VIAL IVP ONE (13:29)
--- NOTE | 2022-06-01 13:42 | CT Report ---
PROCEDURE: CHEST W INDICATIONS: PULMONARY NODULE CONTRAST:100ml omni 300 TECHNIQUE: After the administration of intravenous contrast, 1 mm axial images were acquired from the pulmonary apices through the posterior costophrenic angles. Axial 5 mm soft tissue kernel reconstructions were performed as well as 8 mm axial MIP and coronal and sagittal 5 mm reformations. For radiation dose reduction, the following was used: automated exposure control, adjustment of mA and/or kV according to patient size. COMPARISON: CT 03/30/2020, x-ray 05/25/2022 FINDINGS: Image quality: Excellent. Lungs and pleura: There is a right upper lobe, perifissural nodule measuring 2.3 cm. The nodule conta ins heterogeneous attenuation, and popcorn calcifications. Basilar predominant reticulation, with martin tral and peripheral components. No honeycombing. Associated mild bronchiectasis. This has progressed since 2019, where findings are subtle. Scattered calcified granuloma. Mediastinum: Hepatomegaly. Small hiatal hernia. No adenopathy. Mild coronary artery calcifications fo r age. Bones and chest wall: No suspicious bony lesions. Chronic compression deformity of the L1 vertebral body, without endplate retropulsion.. No axillary or supraclavicular adenopathy by size criteria. T here is an incidental thyroid nodule measuring 8 mm; no follow-up required per consensus guidelines. Abdomen: Visualized upper abdominal solid organs appear normal. Upper abdominal bowel loops are nor mal in caliber. IMPRESSION: 1.Right upper lobe, perifissural nodule measuring 2.3 cm. The nodule contains heterogeneous attenuati on, and popcorn calcifications. Findings are favored to represent a hamartoma, less likely malignancy . Short-term follow-up (3 months) is recommended to ensure stability. 2.Basilar predominant reticulation, with central and peripheral components. No honeycombing. Associat ed mild bronchiectasis. This has progressed since 2019, where findings are subtle. Findings could rep resent interstitial lung disease. Recommend pulmonology referral for further workup. Reviewed by: Tim Jones on 06/01/2022 1:41 PM PST Approved by: Tim Jones on 06/01/2022 1:41 PM PST Station ID: [id number]
== END 2022-06-01 12:57 | disposition home or self-care (01) ==
LOC: DI 12:56
PROVIDERS: ATTEND Internal Medicine
DX: R91.1 Solitary pulmonary nodule (principal); Z79.899 Other long term (current) drug therapy; J84.89 Other specified interstitial pulmonary diseases; J47.9 Bronchiectasis, uncomplicated
CPT/HCPCS: 71260; Q9967

== ENCOUNTER 2022-09-21 09:45 | Outpatient (CLI) | payer MEDICARE, OTHER ==
[2022-09-21] MEDS ORDERED: iohexoL-300 100 ML VIAL ONE (09:58)
[2022-09-21 10:09] LABS: CREATININE 0.5 mg/dL (0.4-1.0)
[2022-09-21] MEDS ORDERED: iohexoL-300 100 ML VIAL IVP ONE (10:32)
--- NOTE | 2022-09-21 14:40 | CT Report ---
PROCEDURE: CHEST W INDICATIONS: PULMONARY NODULE, DYSPNEA, ACUTE COUGH CONTRAST: 100ml omni 300 TECHNIQUE: After the administration of intravenous contrast, 1 mm axial images were acquired from the pulmonary apices through the posterior costophrenic angles. Axial 5 mm soft tissue kernel reconstructions were performed as well as 8 mm axial MIP and coronal and sagittal 5 mm reformations. For radiation dose reduction, the following was used: automated exposure control, adjustment of mA and/or kV according to patient size. COMPARISON: CT chest with, 06/01/2022. FINDINGS: Image quality: Excellent. Lungs and pleura: There is a 1.5 x 2.3 cm partially calcified mass in the right middle lobe along the minor fissure, unchanged in size, likely none. There multiple small calcified nodules laterally, likely sequelae of remote granulomatous infection. There is a there is a 0.8 cm fissural nodules or nodular thickening in the right lower lobe. A 1.1 cm subpleural nodule in the lingula appears unchanged, likely round atelectasis. Bilateral interlobular septal thickening most pronounced in lower lobes. No consolidation. No pleural effusions. No pneumothorax. No suspicious pulmonary nodules which requi re follow up. Mediastinum: Heart is mildly enlarged. Moderate coronary calcification. No pericardial effusion. No l arge vessel abnormality. No mediastinal adenopathy by size criteria. Small hiatal hernia. Chest wall and lower neck: Small thyroid nodules are noted bilaterally. No axillary or supraclavicula r adenopathy by size. Bones: No aggressive osseous abnormality. Mild chronic compression fracture of L1. Upper Abdomen: There is a 3.6 x 2.7 cm simple cyst in the superior pole the right kidney. A 1 cm hypo dense nodule in left kidney is also likely a cyst. IMPRESSION: 1. Stable 1.5 x 2.3 cm partially calcified nodule in the right middle lobe. It is most likely benign such as a pulmonary hamartoma. No additional follow-up is recommended. 2. Bilateral calcified pulmonary nodules are present, likely sequelae of remote granulomatous infecti on. 3. Prominent atelectasis in lingula. 4. Interlobular septal thickening bilaterally, predominantly involving lower lobes. No significant ch jordan from the last exam. No focal consolidation. 5. Small hiatal hernia. Reviewed by: Renee Dsouza MD on 09/21/2022 2:39 PM PDT Approved by: Renee Dsouza MD on 09/21/2022 2:39 PM PDT Station ID: [id number]
== END 2022-09-21 09:46 | disposition home or self-care (01) ==
LOC: LAB 09:45
PROVIDERS: ATTEND Internal Medicine
DX: Z79.899 Other long term (current) drug therapy (principal); R06.00 Dyspnea, unspecified; R05.1 Acute cough; R91.8 Other nonspecific abnormal finding of lung field; J98.11 Atelectasis; K44.9 Diaphragmatic hernia without obstruction or gangrene
CPT/HCPCS: 36415; 71260; 82565; Q9967

== ENCOUNTER 2023-03-15 02:26 | Outpatient (CLI) | payer MEDICARE, OTHER | END 2023-03-15 23:59 | disposition critical access hospital (66) | LOC: EMS 02:26 | DX: M25.512 Pain in left shoulder (principal); R11.0 Nausea; W01.0XXA Fall on same level from slipping, tripping and stumbling without subsequent striking against object, initial encounter; Y92.003 Bedroom of unspecified non-institutional (private) residence as the place of occurrence of the external cause | CPT/HCPCS: A0425; A0427 ==

== ENCOUNTER 2023-03-15 02:41 | Emergency (ER) | payer MEDICARE, OTHER ==
--- NOTE | 2023-03-15 02:57 | ED Physician Documentation ---
History of Present Illness - Stated complaint Stated Complaint: LEFT SHOULDER PAIN WITH FALL - Chief complaint Chief Complaint: Ext Problem - History obtained from History obtained from: Patient - Additonal information Additional information: 78yF presents with sudden onset L shoulder pain s/p mechanical fall onto it tonight. denies other injury. 25ucg fentanyl given by ems IV en route with improvement in pain. 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: Hysterectomy, Oophrectomy Cardiovascular: Cardiac catheterization - Present Medications Home Medications: Ambulatory Orders Medication Instructions Recorded Confirmed Ibuprofen [Motrin] 400 mg PO ONCE 07/23/17 07/23/17 Multivitamin [Multiple Vitamins] 1 each PO DAILY 07/23/17 07/23/17 Oxycodone HCl/Acetaminophen 1 each PO Q4H PRN #15 tablet 03/15/23 [Percocet 5-325 mg Tablet] - Allergies Allergies/Adverse Reactions: Allergies Allergy/AdvReac Type Severity Reaction Status Date / Time No Known Drug Allergies Allergy Verified 03/15/23 02:55 - Social History Does the pt smoke?: No Smoking Status: Never smoker Does the pt drink ETOH?: No Does the pt have substance abuse?: No - Immunizations Immunizations are current?: Yes - POLST Patient has POLST: No PD ED PE NORMAL - Vitals Vital signs reviewed: Yes - General General: Alert and oriented X 3, No acute distress, Well developed/nourished - HEENT HEENT: Atraumatic, PERRL, EOMI - Cardiac Cardiac: RRR - Respiratory Respiratory: No respiratory distress, Clear bilaterally - Derm Derm: Normal color, Warm and dry - Extremities Extremities: Other (L shoulder ttp and tender with rom. ttp of L proximal humerus. L forearm nontender. 2+ radial pulse LUE. CSM intact) Results - Vitals Vitals: Vital Signs - 24 hr 03/15/23 02:51 Temperature 36.9 C Heart Rate 73 Respiratory 18 Rate Blood Pressure 168/55 H O2 Saturation 100 Oxygen O2 Source Room air PD Medical Decision Making - ED course ED course: 78-year-old woman presents with left shoulder pain status post fall. X-ray of the shoulder and humerus was ordered. Patient's pain is well-controlled with 25 mcg of fentanyl administered by EMS. xray shows comminuted proximal humerus fracture per my wet read. d/w Dr. Fernandez who will see patient in clinic for follow up next week. sling applied, analgesia provided. return precautions given. Departure - Departure Disposition: 01 Home, Self Care Clinical Impression: Shoulder pain, left, Proximal humerus fracture Condition: Stable Instructions: ED Fx Upper Ext Follow-Up: Diallo Fernandez MD [Provider Admit Priv/Credential] - Prescriptions: Oxycodone HCl/Acetaminophen [Percocet 5-325 mg Tablet] 1 each PO Q4H PRN #15 tablet PRN Reason: Pain >8 Comments: You were seen in the emergency department for proximal humerus fracture (break in the bone of your arm near the shoulder). Prescription was sent electronically to [facility]. Please follow-up with Dr. Fernandez (orthopedics) in 1 week and return to the emergency department if you have any new or worsening symptoms or other concerns. You are being prescribed Percocet, a strong pain medicine. Do not use when driving or operating heavy machinery. Dispose of any unused pills at your local police station. This medication may cause constipation. If you are prone to constipation then please take with [id number] sennadocusate and MiraLAX. Forms: PCP List
[2023-03-15 03:00] VITALS: BP 168/55; O2SAT 100
--- NOTE | 2023-03-15 08:37 | XRAY Report ---
PROCEDURE: Humerus LT INDICATIONS: shoulder pain s/p fall TECHNIQUE: 2 views of the humerus were acquired. COMPARISON: X-ray left shoulder, 03/15/2023. FINDINGS: Bones: There is a comminuted humeral head and neck fracture with mild displacement. No suspicious b alfonso lesions. Soft tissues: No suspicious soft tissue calcifications or masses. IMPRESSION: Comminuted humeral head and neck fracture with displacement. Findings are concordant with preliminary interpretation provided by [facility]. Reviewed by: Renee Dsouza MD on 03/15/2023 8:35 AM PST Approved by: Renee Dsouza MD on 03/15/2023 8:35 AM PST Station ID: [id number]
--- NOTE | 2023-03-15 08:40 | XRAY Report ---
PROCEDURE: Shoulder 2 View LT INDICATIONS: shoulder pain s/p fall TECHNIQUE: 3 views of the shoulder were acquired. COMPARISON: X-ray left humerus, 03/15/2023. FINDINGS: Bones: There is a comminuted humeral head and neck fracture with mild displacement. Visualized ribs appear intact. Soft tissues: Question rotator cuff calcific tendinitis. IMPRESSION: Comminuted humeral head and neck fracture with mild displacement. Findings are concordant with preliminary interpretation provided by [facility]. Reviewed by: Renee Dsouza MD on 03/15/2023 8:38 AM PST Approved by: Renee Dsouza MD on 03/15/2023 8:38 AM PST Station ID: [id number]
== END 2023-03-15 04:10 | disposition home or self-care (01) ==
LOC: EDUNIT# → ED 02:41
DX: S42.292A Other displaced fracture of upper end of left humerus, initial encounter for closed fracture (principal); W19.XXXA Unspecified fall, initial encounter; Y93.E8 Activity, other personal hygiene; Y92.002 Bathroom of unspecified non-institutional (private) residence as the place of occurrence of the external cause
CPT/HCPCS: 99283

== ENCOUNTER 2023-03-19 09:51 | Outpatient (CLI) | payer MEDICARE, OTHER ==
--- NOTE | 2023-03-19 15:27 | XRAY Report ---
PROCEDURE: Shoulder 3 View LT INDICATIONS: LEFT SHOULDER FRACTURE TECHNIQUE: 3 views of the shoulder were acquired. COMPARISON: X-ray humerus, shoulder 03/15/2023 FINDINGS: Bones: Mildly displaced comminuted humeral head and neck fracture. Minimal inferior subluxation at t he glenohumeral joint space. There appears to be overall slightly more displacement at the level of t he humeral head/neck.. No suspicious bony lesions. Visualized ribs appear intact. Soft tissues: No suspicious soft tissue calcifications. The visualized lungs are within normal limi ts. IMPRESSION: Comminuted humeral head/neck fracture with appearance of minimally increased displacement. Reviewed by: Sonia Pressley MD on 03/19/2023 3:26 PM PST Approved by: Sonia Pressley MD on 03/19/2023 3:26 PM [facility] Station ID: [id number]
== END 2023-03-19 23:59 | disposition home or self-care (01) ==
LOC: DI.WOS 09:51
PROVIDERS: ATTEND Orthopaedic Surgery
DX: S42.232D 3-part fracture of surgical neck of left humerus, subsequent encounter for fracture with routine healing (principal)

== ENCOUNTER 2023-04-25 08:00 | Outpatient (CLI) | payer MEDICARE, OTHER ==
--- NOTE | 2023-04-25 15:19 | XRAY Report ---
PROCEDURE: Shoulder 3 View LT INDICATIONS: LEFT SHOULDER FRACTURE TECHNIQUE: 3 views of the shoulder were acquired. COMPARISON: 03/19/2023 FINDINGS: Bones: Comminuted left humeral head and neck fracture demonstrates mild medial displacement of the m ain distal fracture fragment, similar compared to the prior exam. There is improved clinical humeral joint alignment with less caudal subluxation. There is prominent lateral bridging callus between the head and neck fragments. Soft tissues: No suspicious soft tissue calcifications. Left lateral lung granuloma. The visualized lungs are otherwise within normal limits. IMPRESSION: 1. Interval partial healing of the left humeral head and neck fracture. Reviewed by: Anju Bennett MD on 04/25/2023 3:18 PM PST Approved by: Anju Bennett MD on 04/25/2023 3:18 PM PST Station ID: [id number]
== END 2023-04-25 23:59 | disposition home or self-care (01) ==
LOC: DI.WOS 08:00
PROVIDERS: ATTEND Orthopaedic Surgery
DX: S42.232D 3-part fracture of surgical neck of left humerus, subsequent encounter for fracture with routine healing (principal)

== ENCOUNTER 2023-06-06 11:30 | Outpatient (CLI) | payer MEDICARE, OTHER ==
--- NOTE | 2023-06-06 15:08 | XRAY Report ---
PROCEDURE: Shoulder 3 View LT INDICATIONS: LEFT SHOULDER FRACTURE TECHNIQUE: 3 views of the shoulder were acquired. COMPARISON: None. FINDINGS: Bones: Interval bone remodeling of the greater tuberosity and humeral neck fracture. Stable alignmen t. Soft tissues: No suspicious soft tissue calcifications. The visualized lungs are within normal limi ts. Calcified granuloma of the left upper lobe. IMPRESSION: Interval healing of the left humeral neck and greater tuberosity fracture. Reviewed by: Tim Jones MD on 06/06/2023 3:07 PM [facility] Approved by: Tim Jones MD on 06/06/2023 3:07 PM [facility] Station ID: [id number]
== END 2023-06-06 23:59 | disposition home or self-care (01) ==
LOC: DI.WOS 11:30
PROVIDERS: ATTEND Orthopaedic Surgery
DX: S42.232D 3-part fracture of surgical neck of left humerus, subsequent encounter for fracture with routine healing (principal)

== ENCOUNTER 2023-07-04 11:15 | Outpatient (CLI) | payer MEDICARE, OTHER ==
--- NOTE | 2023-07-04 15:43 | XRAY Report ---
PROCEDURE: Shoulder 3 View LT INDICATIONS: LEFT SHOULDER PAIN TECHNIQUE: 3 views of the shoulder were acquired. COMPARISON: Left shoulder radiographs 06/06/2023, 03/19/2023, 03/15/2023.. FINDINGS: Bones: Prior fracture of the greater tuberosity and humeral neck. There is a bony remodeling with br idging callus. No dislocations. No suspicious bony lesions. Visualized ribs appear intact. Mild deg enerative changes at the supraclavicular joint. Soft tissues: No suspicious soft tissue calcifications. The visualized lungs are within normal limi ts. IMPRESSION: Stable appearance of the healing left greater tuberosity and humeral neck fractures. Reviewed by: Jluis Millard MD on 07/04/2023 3:41 PM PDT Approved by: Jluis Millard MD on 07/04/2023 3:41 PM PDT Station ID: [id number]
== END 2023-07-04 23:59 | disposition home or self-care (01) ==
LOC: DI.WOS 11:15
PROVIDERS: ATTEND Orthopaedic Surgery
DX: S42.232D 3-part fracture of surgical neck of left humerus, subsequent encounter for fracture with routine healing (principal)

== ENCOUNTER 2023-10-30 13:19 | Outpatient (CLI) | payer MEDICARE, OTHER ==
--- NOTE | 2023-11-12 10:17 | Mammography Report ---
BILATERAL DIGITAL DIAGNOSTIC MAMMOGRAM 3D/2D: 10/30/2023 CLINICAL: Palpable left breast lump by physician. Due for bilateral exam. Comparison is made to exams dated: 05/12/2020 mammogram, 11/30/2019 mammogram, 07/08/2017 mammogram, 06/13/2017 mammogram, and 01/24/2015 mammogram - [facility]. Both breasts are heterogeneously dense, which may obscure small masses (category c / 51-75% glandular tissue). There is a benign post surgical scar in the left breast at 3 o'clock that is not significantly change d. There is a possible 8 mm oval equal density asymmetry with an obscured and circumscribed margin in th e left breast middle depth lateral region seen on the craniocaudal view only. This is not seen in ad ditional views. This is more prominent compared to prior exams. It is posterior and superior to the indicated palpable area. No other finding to correspond to the patient's palpable abnormality. No other significant masses, calcifications, or other findings are seen in either breast. Right allyssa st mammogram is stable. IMPRESSION: INCOMPLETE: NEEDS ADDITIONAL IMAGING EVALUATION Ultrasound is recommended for full evaluation of the left breast lateral palpable area. A possible 8 mm oval equal density asymmetry in the left breast is more prominent, but not necessaril y corresponding to the palpable abnormality. Ultrasound is recommended for full evaluation of this ar ea. This was performed immediately following this exam. Based on the Tyrer Cuzick model (a risk assessment model) the patient's lifetime risk is 1.7% and her 10 year risk is 0.0%. According to the ACR, ACS, and NCCN guidelines, an annual breast MRI exam brock g with mammogram is recommended if the patient's lifetime risk is 20% or greater. This exam was interpreted at Station ID: [id number]. NOTE: For mammograms, a report in lay terms will be sent to the patient. Approximately 15% of breast malignancies will not be visualized mammographically. In the management of a palpable breast mass, a negative mammogram must not discourage biopsy of a clinically suspicious lesion. Electronically Signed By: Anju montanez/:11/11/2023 12:38:53 ACR BI-RADS Category 0: Incomplete 3340F PARENCHYMAL PATTERN: (D) - The breast(s) demonstrate(s) heterogeneously dense fibroglandular parenchy ma. BI-RADS CATEGORY: (0) - 0 Ultrasound [id number] Immediate follow-up LATERALITY: (B)
--- NOTE | 2023-11-12 10:18 | Ultrasound Report ---
LIMITED ULTRASOUND OF LEFT BREAST: 10/31/2023 CLINICAL: Palpable left breast lump. Comparison is made to exams dated: 10/30/2023 mammogram, 05/12/2020 ultrasound, 05/12/2020 mammogram, ultrasound, 11/30/2019 mammogram, and 07/08/2017 mammogram - [facility]. Color flow ultrasound of the left breast 4 o'clock region was performed. Lopez scale images of the r eal-time examination were reviewed. No significant abnormalities were seen sonographically in the left breast. Specifically, no finding to correspond to the patient's palpable abnormality or to the mammogram only incidental asymmetry. IMPRESSION: PROBABLY BENIGN No sonographic correlate to the palpable abnormality. A follow-up left mammogram and an ultrasound in 6 months is recommended to demonstrate stability of t he incidental asymmetry seen in the left breast. Findings and recommendations were conveyed to the patient at time of exam. This exam was interpreted at Station ID: [id number]. Electronically Signed By: Anju montanez/:11/11/2023 12:40:00 Entry: zeinab - 11/12/2023 10:07:28 Ultrasound BI-RADS: 3 Probably benign BI-RADS CATEGORY: (3) - 3 Mammo and [place] [id number] 6 month follow-up LATERALITY: (L)
== END 2023-10-30 13:20 | disposition home or self-care (01) ==
LOC: DI 13:19
PROVIDERS: ATTEND Internal Medicine
DX: N63.21 Unspecified lump in the left breast, upper outer quadrant (principal); R92.333 Mammographic heterogeneous density, bilateral breasts

== ENCOUNTER 2025-03-22 01:10 | Observation (INO) ==
--- OUTSIDE RECORDS SUMMARY | 2025-03-22 01:20 | EXTERNAL MEDICAL SUMMARY RPT | Encounter Summary ---
Author Organization Located within [facility] Address [address] [place] [id number] Care Team Providers Care Silk Opener Name Role Phone Cherelle Aguilar Unavailable Encounter Details Date Type Department Care Team (Late st Contact Info) Description 11/01/2021 Scanned Document SCANNED ONLY Scanned, Document Social History Tobacco Use Types Packs/Day Years Used Date Smoking Tobacco: Never Smokeless Tobacco: Never Alcohol Use Standard Drinks/Week Comments Yes 0 (1 standard drink = 0.6 oz pur e alcohol) wine or liquor 2-3x per week Comments No Sex and Gender Information Value Date Recorded Sex Assigned at Not on file Legal Sex Female 2:39 PM PST Gender Identity Not on file Sexual Orientation Not on file documented as of this encounter Plan of Treatment Not on file documented as of this encounter Visit Diagnoses Not on filedocumented in this encounter Care Teams Silk Opener Relationship Specialty Start Date End Date Cherelle Aguilar [address] [place], [place] [phone] PCP - Patient Reported PCP Internal Medicine 07/28/18 documented as of this encounter
--- OUTSIDE RECORDS SUMMARY | 2025-03-22 01:20 | EXTERNAL MEDICAL SUMMARY RPT | Clinical Summary ---
Author Organization [facility] Address [facility] [address] Care Team Providers Care Armament Installer Name Role Phone TrentonedinCherelle Unavailable Allergies No known active allergies Medications ALPHA LIPOIC ACID ORAL Take 200 mg by mouth daily Active KRILL OIL ORAL Take 1,000 mg by mouth daily Active med unable to find Nerve Regen 4 tablets daily Active CALCIUM CITRATE ORAL Take 500 mg by mouth daily Active ACETYLCARNITINE ORAL Take 500 mg by mouth daily Active cranberry fruit (CRANBERRY) 450 mg Tablet Take 1 tablet by mouth daily Active donepeziL (ARICEPT) 10 MG tabletIndicatio ns:Cognitive impairment Take 1 tablet (10 mg total) by mouth nightly 90 tablet 3 02/07/2024 Active melatonin 5 mg Capsule Take by mouth Active traZODone (DESYREL) 50 MG tablet Take 1 tablet (50 mg total) by mouth nightly as needed for Insomnia 90 tablet 3 08/31/2024 Active Active Problems Problem Noted Date Diagnosed Date Alzheimer's disease 08/14/2023 Polyneuropathy 08/14/2023 Spinal stenosis at L4-L5 level 08/06/2018 Other chest pain 11/02/2009 Overview (03/15/2013): Chest tightness/pressure GEMMS CONVERSION DATA Other left bundle branch block 11/02/2009 Overview (03/15/2013): Conduction Disorder-Left Bundle Branch Block GEMMS CONVERSION DATA Social History Tobacco Use Types Packs/Day Years Used Date Smoking Tobacco: Never Smokeless Tobacco: Never Tobacco Cessation:Counseling Given: Not Answered Alcohol Use Standard Drinks/Week Comments Not Currently 0 (1 standard drink = 0.6 oz pur e alcohol) wine or liquor 2-3x per week Comments No Sex and Gender Information Value Date Recorded Sex Assigned at Not on file Legal Sex Female 2:39 PM PST Gender Identity Not on file Sexual Orientation Not on file Last Filed Vital Signs Vital Sign Reading Time Taken Comments Blood Pressure 118/60 03/06/2024 10:04 AM PST Pulse 84 03/06/2024 10:04 AM PST Temperature 36.9 C (98.4 F) 08/08/2018 7:55 AM PDT Respiratory Rate 16 08/08/2018 7:55 AM PDT Oxygen Saturation 99% 03/06/2024 10:04 AM PST Inhaled Oxygen Concentration - - Weight 65.8 kg (145 lb) 03/06/2024 10:04 AM PST Height 170.2 cm (5' 7") 01/28/2023 12:58 PM PDT Body Mass Index 22.71 01/28/2023 12:58 PM PDT Plan of Treatment Health Maintenance Due Date Last Done Comments Disability Screening 1945 DTaP/Tdap/Td Vaccine (1 - Tdap) 1962 Pneumococcal 50+ Years (1 of 1 - PCV) 1993 Zoster (1 of 2) 1993 Medicare Initial Annual Well ness Visit [id number] 02/14/2008 Osteoporosis Screening 02/24/2008 RSV Vaccines (1 - 1-dose 75+ series) 2018 Drug, Alcohol, and Depressio n Screening 04/15/2024 SOGIE 04/15/2024 Cognitive Assessment (SLUMS) 08/13/202404/2023, 01/28/2023, 07/27/2022, Additional history exists Covid-19 Vaccine (1 - 2024-2 6 season) 2024 Influenza Vaccine (#1) 2024 Insurance MEDICARE [facility] Advance Directives Documents on File Type Date Recorded Patient Cash Applications Analyst Expl anation Advance Directives and Livin g Will 01/13/2010 1:00 AM * Full Code (Latest Code Status on File) Date Activated Date Inactivated Comments 08/06/2018 8:50 AM 09/27/2022 6:44 AM Care Teams Armament Installer Relationship Specialty Start Date End Date Cherelle Aguilar [address] [place] [address] PCP - Patient Reported PCP Internal Medicine 07/28/18
--- OUTSIDE RECORDS SUMMARY | 2025-03-22 01:20 | EXTERNAL MEDICAL SUMMARY RPT | Encounter Summary ---
Author Organization [facility] Address [facility] [address] Care Team Providers Care Marketing Communications Coordinator Name Role Phone Cherelle Aguilar Unavailable Encounter Details Date Type Department Care Team (Late st Contact Info) Description 06/08/2021 Scanned Document SCANNED ONLY Scanned, Document Social [...] on filedocumented in this encounter Care Teams Marketing Communications Coordinator Relationship Specialty Start Date End Date Cherelle Aguilar [address] [place], [place] [phone] PCP - Patient Reported PCP Internal Medicine 07/28/18 documented as of this encounter
--- OUTSIDE RECORDS SUMMARY | 2025-03-22 01:20 | EXTERNAL MEDICAL SUMMARY RPT | Encounter Summary ---
Author Organization [facility] Address [facility] [address] Care Team Providers Care Carbonizer Name Role Phone Cherelle Aguilar Unavailable Encounter Details Date Type Department Care Team (Late st Contact Info) Description 08/18/2023 Scanned Document SCANNED ONLY Scanned, Document Social [...] on filedocumented in this encounter Care Teams Carbonizer Relationship Specialty Start Date End Date Cherelle Aguilar [address] [place], [place] [phone] PCP - Patient Reported PCP Internal Medicine 07/28/18 documented as of this encounter
--- OUTSIDE RECORDS SUMMARY | 2025-03-22 01:20 | EXTERNAL MEDICAL SUMMARY RPT | Clinical Summary ---
Author Organization [facility] Address [address] [place] [address] Care Team Providers Care Appliance Tester Name Role Phone Cherelle Aguilar Primary Care Provider [phone] Social History Tobacco Use Types Packs/Day Years Used Date Smoking Tobacco: Never Assessed Comments Unknown Sex and Gender Information Value Date Recorded Sex Assigned at Not on file Legal Sex Female 7:39 PM PDT Gender Identity Not on file Sexual Orientation Not on file Plan of Treatment Not on file Care Teams Appliance Tester Relationship Specialty Start Date End Date Cherelle Aguilar [address] [place] [address] PCP - General 11/14/16
--- OUTSIDE RECORDS SUMMARY | 2025-03-22 01:20 | EXTERNAL MEDICAL SUMMARY RPT | Encounter Summary ---
Author Organization [facility] Address [address] [place] [address] Care Team Providers Care Manager Product Support Name Role Phone Cherelle Aguilar Unavailable Reason for Referral * Specialty Services (Routine) - Closed Specialty Diagnoses / Procedures Referred By Contac t Referred To Contact Neurology Diagnoses Peripheral polyneuropathy Weakness Memory loss Cherelle Aguilar [address] [place] [address] Phone: tel: fax: NEUROLOGY - [place] - [facility] [address] [place] [address] Phone: tel: fax: Referral ID Status Reason Start Date Expiration Date Visits Re quested Visits Authorized [id number] Closed 06/15/2021 06/15/2022 1 1 Encounter Details Date Type Department Care Team (Latest Contact Info) Description 06/15/2021 Order Citrix Lead NEUROLOGY - [place] - [facility] [address] [place] [address] Cherelle Aguilar [address] [place] [address] Peripheral polyneuropathy; Weakness; Memory loss Social History Tobacco Use Types Packs/Day Years [...] as of this encounter Plan of Treatment Scheduled Referrals Name Type Priority Associated Diagnoses Order Schedule Ambulatory referral to Neurology Outpatient Referral Routine Peripheral polyneuropathy Weakness Memory loss Ordered: 06/15/2021 documented as of this encounter Visit Diagnoses Diagnosis Peripheral polyneuropathy Weakness Other malaise and fatigue Memory loss documented in this encounter Care Teams Manager Product Support Relationship Specialty Start Date End Date Cherelle Aguilar [address] [place] [id number] PCP - Patient Reported PCP Internal Medicine 07/28/18 documented as of this encounter
--- OUTSIDE RECORDS SUMMARY | 2025-03-22 01:20 | EXTERNAL MEDICAL SUMMARY RPT | Encounter Summary ---
Author Organization [facility] Address [address] [place] [address] Care Team Providers Care Sexologist Name Role Phone Cherelle Aguilar Unavailable Reason for Referral * Diagnostic Procedure (Routine) - Closed Specialty Diagnoses / Procedures Referred By Contac t Referred To Contact Neurology Diagnoses Neuropathy Weakness Procedures EMG Cherelle Aguilar [address] [place] [address] Phone: tel: fax: NEUROLOGY - [place] - [facility] [address] [place] [address] Phone: tel: fax: Referral ID Status Reason Start Date Expiration Date Visits Re quested Visits Authorized [id number] Closed 06/13/2021 06/13/2022 1 1 Encounter Details Date Type Department Care Team (Late st Contact Info) Description 06/13/2021 Order Refueling Ramp Supervisor NEUROLOGY - [place] - [facility] [address] [place] [address] Cherelle Aguilar [address] [place] [address] Neuropathy; Weakness Social History Tobacco Use Types Packs/Day Years [...] of this encounter Plan of Treatment Scheduled Orders Name Type Priority Associated Diagnoses Orde r Schedule EMG Procedures Routine Neuropathy Weakness Ordered: 06/13/2021 documented as of this encounter Visit Diagnoses Diagnosis Neuropathy Mononeuritis of unspecified site Weakness Other malaise and fatigue documented in this encounter Care Teams Sexologist Relationship Specialty Start Date End Date Cherelle Aguilar [address] [place] [id number] PCP - Patient Reported PCP Internal Medicine 07/28/18 documented as of this encounter
--- OUTSIDE RECORDS SUMMARY | 2025-03-22 01:20 | EXTERNAL MEDICAL SUMMARY RPT | Encounter Summary ---
Author Organization [facility] Address [address] [address] Care Team Providers Care Dispensing Audiologist Name Role Phone Cherelle Aguilar Unavailable Encounter Details Date Type Department Care Team (Late st Contact Info) Description 03/15/2013 Abstract HISTORIC_CONVERSION [address], [place] [id number] Other chest pain (Primary Dx); Other left bundle branch block Social History Tobacco Use Types Packs/Day Years Used Date Smoking Tobacco: Never Assessed Comments Unknown Sex and Gender Information Value Date Recorded Sex Assigned at Not on file Legal Sex Female 2:39 PM PST Gender Identity Not on file Sexual Orientation Not on file documented as of this encounter Plan of Treatment Not on file documented as of this encounter Visit Diagnoses Diagnosis Other chest pain- Primary Other left bundle branch block documented in this encounter Care Teams Dispensing Audiologist Relationship Specialty Start Date End Date Cherelle Aguilar [address] [place], [place] [phone] PCP - Patient Reported PCP Internal Medicine 07/28/18 documented as of this encounter
--- OUTSIDE RECORDS SUMMARY | 2025-03-22 01:20 | EXTERNAL MEDICAL SUMMARY RPT | Encounter Summary ---
Author Organization [facility] Address [facility] [address] Care Team Providers Care Barbering Instructor Name Role Phone Cherelle Aguilar Unavailable Encounter Details Date Type Department Care Team (Late st Contact Info) Description 02/19/2018 Scanned Document SCANNED ONLY Scanned, Document Social [...] on filedocumented in this encounter Care Teams Barbering Instructor Relationship Specialty Start Date End Date Cherelle Aguilar [address] [place], [place] [phone] PCP - Patient Reported PCP Internal Medicine 07/28/18 documented as of this encounter
--- OUTSIDE RECORDS SUMMARY | 2025-03-22 01:20 | EXTERNAL MEDICAL SUMMARY RPT | Encounter Summary ---
Author Organization [facility] Address [facility] [address] Care Team Providers Care Wood Stock Blank Handler Name Role Phone Cherelle Aguilar Unavailable Encounter Details Date Type Department Care Team (Late st Contact Info) Description 07/05/2022 Scanned Document SCANNED ONLY Scanned, Document Social [...] on filedocumented in this encounter Care Teams Wood Stock Blank Handler Relationship Specialty Start Date End Date Cherelle Aguilar [address] [place], [place] [phone] PCP - Patient Reported PCP Internal Medicine 07/28/18 documented as of this encounter
--- OUTSIDE RECORDS SUMMARY | 2025-03-22 01:20 | EXTERNAL MEDICAL SUMMARY RPT | Encounter Summary ---
Author Organization [facility] Address [facility] [address] Care Team Providers Care Technical Solutions Director Name Role Phone Cherelle Aguilar Unavailable Encounter Details Date Type Department Care Team (Late st Contact Info) Description 10/27/2019 Scanned Document SCANNED ONLY Scanned, Document Social [...] on filedocumented in this encounter Care Teams Technical Solutions Director Relationship Specialty Start Date End Date Cherelle Aguilar [address] [place], [place] [phone] PCP - Patient Reported PCP Internal Medicine 07/28/18 documented as of this encounter
--- OUTSIDE RECORDS SUMMARY | 2025-03-22 01:20 | EXTERNAL MEDICAL SUMMARY RPT | Clinical Summary ---
Author Organization [facility] Address [address] [place] [address] Care Team Providers Care Unstacker Name Role Phone Unavailable Primary Care Provider Unavailabl e Source Comments NOTE: The information displayed by Care Everywhere is extracted from the complete medical record and may not identify all current or past patient conditions.[facility] Immunizations Immunization Administration Dates Next Due H1N1 Influenza (.50 not PF) 03/24/2009 Novel Influenza H1N1, unspecified formulation Social History Tobacco Use Types Packs/Day Years Used Date Smoking Tobacco: Never Assessed Comments Unknown Sex and Gender Information Value Date Recorded Sex Assigned at Not on file Legal Sex Female 11:09 AM PST Gender Identity Not on file Sexual Orientation Not on file Plan of Treatment Health Maintenance Due Date Last Done Comments Vaccine: [id number]-Xv (1 - Tdap) 1962 Vaccine: Pneumococcal (1 of 1 - PCV) 1993 Vaccine: Shingles (1 of 2) 1993 Vaccine: RSV (1 - 1-dose 75+ series) 2018 FLU VACCINE (#1) 12/14/2024
--- NOTE | 2025-03-22 01:23 | ED Physician Documentation ---
History of Present Illness Stated complaint Stated Complaint: WEAKNESS Chief complaint Chief Complaint: Fever Additonal information Additional information: 80-year-old with a history of dementia presents with weakness. Patient was reportedly in her normal state of health until this evening. Her was initially concerned that she was not eating as much dinner as usual. During the night, he stood her up to try to help her to the bathroom, and she was unable to stand without his assistance. She was also unable to ambulate secondary to weakness and nearly fell over. Normally, she can ambulate either independently or with a cane. She has been having a cough for the last few days. No recorded fevers at home. Patient was reporting general myalgias earliy today. Her states she is at her normal baseline mental status. She did not get an influenza vaccine this year. Meds/Allgy Home Medications Ambulatory Orders Medication Instructions Recorded Confirmed donepezil 10 mg tablet 10 mg PO DAILY 03/22/2512/07 trazodone 50 mg tablet 50 mg PO DAILY 03/22/2512/07 Allergies Allergies Allergy/AdvReac Type Severity Reaction Status Date / Time No Known Drug Allergies Allergy Verified 03/22/25 01:33 PFSH Active Problems All Active Problems (Updated 03/22/25 @ 02:47 by Burton Jackson MD) Weakness (Acute) Influenza (Acute) Fever (Acute) Medical History Medical History (Updated 03/22/25 @ 02:47 by Burton Jackson MD) Dementia Social History Social History (Updated 03/22/25 @ 02:11 by Raysa Quiñonez RN) Smoking Status: Never smoker Do you dip or chew tobacco?: No Do you feel safe in your home environment?: Yes History of physical, verbal, emotional, or financial abuse?: No ETOH Use: POLST Patient has POLST: No Exam Exam Vital Signs: Vital Signs x48h Temp Pulse Resp BP Pulse Ox 03/22/25 02:34 37.4 C 03/22/25 02:00 83 16 109/53 L 94 03/22/25 01:10 39.1 C H 124 H 19 94/57 L 95 Resting comfortably in no acute distress. She is febrile and tachycardic with mildly low blood pressure although MAP greater than 65. Patient is oriented to person only. S1 and S2 are audible. Lungs are clear to auscultation bilaterally. Abdomen is soft and nontender. There are no sacral wounds. There are some scabbing lesions of the upper back. Moving all extremities without focal neurologic deficit. Extremities are warm and well-perfused. Results Vitals Vitals: Vital Signs - 24 hr 03/22/25 01:10 03/22/25 01:48 03/22/25 02:00 Temperature 39.1 C H Temperature Source Rectal Pulse Rate 124 H 83 Respiratory Rate 19 16 Blood Pressure 94/57 L 109/53 L O2 Saturation 95 94 O2 Source Room air Room air Pain Intensity 0 0 0 03/22/25 02:34 Temperature 37.4 C Temperature Source Pulse Rate Respiratory Rate Blood Pressure O2 Saturation O2 Source Pain Intensity 0 Oxygen O2 Source Room air EKG (time done) 1:46: EKG releavant findings:: EKG personally interpreted by author of this note. Relevant findings are: Rate: Rate (enter#) (115) Rhythm: Sinus tachycardia [place]: Normal Intervals: Normal SD QRS: LBBB Ischemia: Non specific changes; No ST elevation c/w ischemia, ST depression or T wave inversion Labs Labs: Laboratory Tests 03/22/25 03/22/25 03/22/25 01:29 01:42 01:53 WBC 12.6 H RBC 3.58 L Hgb 10.7 L Hct 33.2 L MCV 92.7 MCH 29.9 MCHC 32.2 RDW 12.9 Plt Count 209 MPV 9.9 Neut # (Auto) 11.0 H Lymph # (Auto) 0.6 L [place] # (Auto) 1.0 Eos # (Auto) 0.0 Baso # (Auto) 0.0 Absolute Nucleated RBC 0.00 Nucleated RBC % 0.0 Sodium 137 Potassium 4.0 Chloride 105 Carbon Dioxide 25 Anion Gap 7.0 BUN 16 Creatinine 0.7 Estimated GFR (MDRD) 80 L Glucose 144 H Lactic Acid 1.1 Calcium 8.5 Total Bilirubin 0.4 AST 13 ALT 6 L Alkaline Phosphatase 33 L Total Protein 6.5 Albumin 3.9 Globulin 2.6 Albumin/Globulin Ratio 1.5 Nasal Adenovirus (PCR) NOT DETECTED Nasal B. parapertussis DNA (PCR) NOT DETECTED Nasal Coronavir 229E PCR NOT DETECTED Nasal Coronavir HKU1 PCR NOT DETECTED Nasal Coronavir NL63 PCR NOT DETECTED Nasal Coronavir OC43 PCR NOT DETECTED Nasal Enterovir/Rhinovir PCR NOT DETECTED Nasal Influenza A H3 PCR DETECTED A Nasal Influenza B PCR NOT DETECTED Nasal Influenza A PCR Not Reportable Nasal Parainfluen 1 PCR NOT DETECTED Nasal Parainfluen 2 PCR NOT DETECTED Nasal Parainfluen 3 PCR NOT DETECTED Nasal Parainfluen 4 PCR NOT DETECTED Nasal RSV (PCR) NOT DETECTED Nasal B.pertussis DNA PCR NOT DETECTED Nasal C.pneumoniae (PCR) NOT DETECTED Catalino Human Metapneumo PCR NOT DETECTED Nasal M.pneumoniae (PCR) NOT DETECTED Nasal SARS-CoV-2 (PCR) NOT DETECTED PD Medical Decision Making ED course ED course: This patient presents from home after weakness. Upon arrival here, she is febrile, tachycardic, and mildly hypotensive. Lungs are clear to auscultation bilaterally. No physical exam findings to suggest a skin infection. Apparently, the patient has been coughing at home the last couple of days. I would be most concerned for pneumonia or a viral respiratory infection. However, I will check cultures and urinalysis as well due to sepsis. 2 L of fluids work and commenced along with acetaminophen for fever. Ceftriaxone was given empirically for sepsis. Chest radiograph is interpreted by me as no acute cardiopulmonary disease. Patient's viral testing is positive for influenza. Oseltamivir was ordered. I will admit her to the hospital under care of Dr. Barton for further observation given her initial abnormal vital signs. I discussed code status with her , and she is full code. Critical Care Critical Care Provided: Yes Time(min): 35 Comments: sepsis, hypotension Time Includes: Direct patient care, Review records, Reassess patient, Document care, Coordinate care, Medical consult and Family consult for tx dec Data interpretation: Labs, Pulse ox, CXR and See progress note Discharge Plan Discharge Patient Disposition: 66 [facility] DC/Xfer Clinical Impression: Fever, Influenza, Weakness Prescriptions: No Action trazodone 50 mg tablet 50 mg PO DAILY donepezil 10 mg tablet 10 mg PO DAILY Print Language: [place]
[2025-03-22] MEDS: LACTATED RINGERS 1,000 ML IV STA (01:37)
[2025-03-22] MEDS: SODIUM CHLORIDE 0.9% 1,000 ML IV ONE (01:37)
--- NOTE | 2025-03-22 01:46 | XRAY Report ---
PROCEDURE: XR Chest 1V INDICATIONS: Sepsis TECHNIQUE: One view of the chest was acquired. COMPARISON: 09/21/2022 FINDINGS: Surgical changes and devices: None. Lungs and pleura: No pleural effusions or pneumothorax. No consolidation. Calcified granuloma. Partially calcified nodule in the right middle lung zone, stable from prior. Mediastinum: Mediastinal contours appear normal. Heart size is normal. Bones and chest wall: Healing left proximal radius fracture. IMPRESSION: No acute cardiopulmonary process. Reviewed by: Tim Jones MD on 03/22/2025 1:43 AM PST Approved by: Tim Jones MD on 03/22/2025 1:43 AM PST Station ID: [id number]
[2025-03-22] MEDS: ACETAMINOPHEN 500 MG TABLET PO STA (01:48)
[2025-03-22 02:01] LABS: HCT - HEMATOCRIT 33.2 % (37.0-47.0); HGB - HEMOGLOBIN 10.7 g/dL (12.0-16.0); MEAN PLATELET VOLUME 9.9 fL (7.9-10.8); NRBC ABSOLUTE COUNT (AUTO) 0.00 x10^3/uL; NUCLEATED RED BLOOD CELLS AUTO 0.0 /100WBC; PLT - PLATELET COUNT 209 10^3/uL (130-450); RED CELL DISTRIBUTION WIDTH 12.9 % (12.0-15.0)
[2025-03-22 02:17] LABS: ALT ALANINE AMINOTRANSFERASE 6.0 IU/L (10-60); AST ASPARTATE AMINOTRANSFERASE 13.0 IU/L (10-42); BUN - BLOOD UREA NITROGEN 16.0 mg/dL (6-20); CARBON DIOXIDE - CO2 25.0 mmol/L (21-32); CREATININE 0.7 mg/dL (0.6-1.3); GFR - MDRD 80.0 (>89)
[2025-03-22 02:43] LABS: CORONAVIRUS 229E-RESP PCR NOT DETECTED; CORONAVIRUS HKU1-RESP PCR NOT DETECTED; CORONAVIRUS NL63-RESP PCR NOT DETECTED; CORONAVIRUS OC43-RESP PCR NOT DETECTED; HUMAN METAPNEUMOVIRUS NOT DETECTED; RHINOVIRUS/ENTEROVIRUS NOT DETECTED; SARS-CoV-2 -RESP PCR PANEL NOT DETECTED
[2025-03-22 02:44] LABS: B. PARAPERTUSSIS- RESP PCR PAN NOT DETECTED; B. PERTUSSIS- RESP PCR PANEL NOT DETECTED; C. PNEUMONIAE- RESP PCR PANEL NOT DETECTED; INFLUENZA A H3- RESP PCR PANEL DETECTED; INFLUENZA B - RESP PCR PANEL NOT DETECTED; M. PNEUMONIAE- RESP PCR PANEL NOT DETECTED; PARAINFLUENZA VIRUS 1 NOT DETECTED; PARAINFLUENZA VIRUS 2 NOT DETECTED; PARAINFLUENZA VIRUS 4 NOT DETECTED; RSV- RESP PCR PANEL NOT DETECTED
[2025-03-22] MEDS: OSELTAMIVIR 75 MG CAPSULE PO STA (02:59)
[2025-03-22] MEDS ORDERED: SODIUM CHLORIDE FLUSH 0.9% 10 ML SYRINGE IVP PRN (03:20)
[2025-03-22] MEDS ORDERED: ACETAMINOPHEN 325 MG TABLET PO PRN (03:20)
[2025-03-22] MEDS ORDERED: ONDANSETRON 4 MG/2 ML VIAL IVP PRN (03:20)
--- NOTE | 2025-03-22 03:31 | HISTORY & PHYSICAL EXAMINATION ---
Chief Complaint Chief Complaint Chief Complaint: weakness History of Present Illness History of Present Illness HPI Comment/Other: 80-year-old female with a history of dementia presented with generalized weakness. Unable to ambulate and required assistance more than baseline. Normally amylase independently with assistive device. Has had decreased oral intake and a cough the past few days. Brought to the ED by her for evaluation. In the ED she was febrile, tachycardic, had a leukocytosis WBC 13,000, normal lactic acid. Chest x-ray was negative. However she did test positive for influenza A. EKG showed sinus tachycardia with left bundle branch block which is not new. She was given IV fluids, Tamiflu, also initially received a dose of ceftriaxone as part of sepsis management. Otherwise she does not can have any acute complaints. Past medical history: Dementia Past surgical history: She denied major surgeries Family history: Noncontributory to today's presentation Social history: Lives at home with her Review of Systems Status of ROS: 10 or more systems reviewed and unremarkable except as noted in history and below PFSH Active Problems All Active Problems (Updated 03/22/25 @ 03:36 by Igor Fairbanks MD) Sepsis (Acute) Weakness (Acute) Influenza (Acute) Fever (Acute) Medical History Medical History Dementia Social History Social History (Updated 03/22/25 @ 02:11 by Raysa Quiñonez RN) Smoking Status: Never smoker Do you dip or chew tobacco?: No Do you feel safe in your home environment?: Yes History of physical, verbal, emotional, or financial abuse?: No ETOH Use: POLST Patient has POLST: No Level of Medical Intervention: Full Treatment Meds/Allgy Home Medications Ambulatory Orders Medication Instructions Recorded Confirmed donepezil 10 mg tablet 10 mg PO DAILY 03/22/2512/07 trazodone 50 mg tablet 50 mg PO DAILY 03/22/2512/07 Allergies Allergies Allergy/AdvReac Type Severity Reaction Status Date / Time No Known Drug Allergies Allergy Verified 03/22/25 01:33 Exam Exam Vital Signs: Vital Signs x48h Temp Pulse Resp BP Pulse Ox 03/22/25 02:34 37.4 C 03/22/25 02:00 83 16 109/53 L 94 03/22/25 01:10 39.1 C H 124 H 19 94/57 L 95 Constitutional normal general appearance and no apparent distress Neck/C-Spine cervical full ROM noted Chest No gross deformities noted on video Respiratory She did not appear to be in respiratory distress. No tachypnea was evident. Reportedly she had decreased breath sounds right base, clear on the left side, and the upper airway congestion/cough Cardiovascular Tachycardia noted on EKG with a regular rhythm Gastrointestinal Abdomen did not appear to be distended. Reportedly it was soft and nontender Genitourinary Deferred/not indicated Extremities No peripheral edema Neurology She was alert and oriented to self but not to location or time. She was able to answer questions and follow commands. Skin skin was reported to be warm. appeared to have normal color. Sepsis Event Note (H) Evaluation Current Stage of Sepsis: Sepsis Possible source of Sepsis: positive Pulmonary Sepsis Criteria Sepsis Criteria: Suspected or Documented, Recorded Temperature greater than 38.3C or Less than 36C and WBC count greater than 12,000 or less than 4000 Conclusion/Plan Problem List (1) Sepsis: Plan: -Secondary to influenza A/viral sepsis most likely -Status post a dose of ceftriaxone in the ED. Hold further antibiotics unless bacterial source found -Urinalysis pending -Blood culture ordered -Lactic acid was normal -Continue IV fluids (2) Weakness: Plan: -PT/OT evaluation (3) Influenza: Plan: -Tamiflu -Supportive care for symptoms (4) Dementia: Plan: -Continue home donepezil and trazodone Lab Results Lab results reviewed: Yes 03/22/25 01:42 03/22/25 01:42 Diagnostic Imaging Results Diagnostic Imaging Results: positive Final report reviewed EKG Results EKG Interpreted Independently: Yes Core Measures DVT/VTE - Prophylaxis VTE/DVT Prophylaxis med ordered at admit?: Yes Telemedicine Consult Details Provider Location & Consult Time Telemedicine consultation conducted via videoconferencing?: Yes List names and roles of persons who participated in consult:: patient, RN Telemedicine provider location:: [place] Time Telemedicine consult began:: 04:10 Time Telemedicine consult completed:: 04:39
[2025-03-22] MEDS ORDERED: BENZONATATE 100 MG CAPSULE PO PRN (03:50)
[2025-03-22 03:59] LABS: GLUCOSE, URINE (UA) NEGATIVE (NEGATIVE); KETONES,URINE (UA) 15 mg/dL (NEGATIVE); OCCULT BLOOD,URINE TRACE-LYSED (NEGATIVE)
[2025-03-22 04:10] LABS: SQUAMOUS EPITHELIAL CELL,UR FEW Squamous (<= Few)
[2025-03-22] MEDS: SODIUM CHLORIDE 0.9% 1,000 ML IV SCH (04:15)
[2025-03-22] MEDS ORDERED: IPRATROPIUM/ALBUTEROL 3 ML NEB INH PRN (05:29)
[2025-03-22] MEDS: ENOXAPARIN 40 MG/0.4 ML SYRINGE SUBQ SCH (08:32)
[2025-03-22] MEDS: SODIUM CHLORIDE FLUSH 0.9% 10 ML SYRINGE IVP SCH (08:32)
[2025-03-22] MEDS: DONEPEZIL 5 MG TABLET PO SCH (08:32)
[2025-03-22] MEDS: OSELTAMIVIR 75 MG CAPSULE PO SCH (08:32)
--- NOTE | 2025-03-22 10:24 | PHARMACY PROGRESS NOTE ---
Best Possible Medication History Admit Date and Time: 03/22/25 [id number] Home Medications Medication Instructions Recorded Confirmed Type donepezil 10 mg tablet 10 mg PO DAILY 03/22/2512/07 History trazodone 100 mg tablet 100 mg PO QPM 03/22/2503/22 History Processed by: Nursing Medications reviewed in ED?: Yes Medication History completed: Yes Patient Interview: Pt unable to participate Secondary Source(s): Written medication list, Pharmacy records and Insurance records [facility] Statement: As the person ultimately responsible for medication therapy, providers are able to order a medication from an existing home medication list in [facility] via the "Reconcile Routine" prior to Confirmation of that medication by ground support equipment mechanic. Such practice is discouraged except when the physician, in their clinical judgment, deems that a medical need exists for a medication without regard to previous use.
--- NOTE | 2025-03-22 17:16 | PT Plan of Care ---
PT Inpatient Plan of Care DIAGNOSIS Diagnosis: sepsis, influenza A Referring Provider: Sendy Hernandez Patient Status: Observation CHIEF COMPLAINT Chief Complaint: progressive weakness Onset of Chief Complaint: TALENT MANAGEMENT SPECIALIST on 03/22/25 MEDICAL/SURGICAL HISTORY Medical History Dementia BALANCE/FUNCTIONAL RESULTS Tinetti Composite Score (Balance + Gait): 28 Tinetti Assessment Interpretation: Low Fall Risk ASSESSMENT Assessment: The pt is an 80 y/o F who arrived to the ED on 03/22/25 due to progressive weakness, she was hospitalized with sepsis and influenza A. PMH includes dementia, please see chart for complete medical hx. The pt was received resting comfortably supine in bed and presented today with good B UE and LE strength, good activity tolerance, good standing balance, intact sensation to B LE's, and good safety awareness during transfers. There were noted expressive and word finding deficits noted throughout this session, the pt reported that this is new to her as of this admit. Word mary was present at times in the conversation. This concern was discussed with the hospitalist who is working on finding out the severity of he pt's dementia to determine if this is truly a new onset of expressive deficits. At this time the pt does not appear to require continued skilled PT intervention while in the acute setting and it is recommended that she DC home without further therapy needs once medically stable. This plan was discussed with the pt, she was in agreement with this. At the end of the session the pt was sitting up in a chair with call light in reach , chair alarm in place and on, and all needs met. RN, METAL FURNITURE ASSEMBLER, and MD all updated on pt's status and DC rec, no goals will be set as this is an eval only. PLAN Frequency: Evaluation only, no further P.T. DISCHARGE RECOMMENDATIONS Discharge Location: Previous Living Situation Support/Services Needed: No needs Transport Needs at Discharge: Personal vehicle
[2025-03-23 05:00] LABS: HCT - HEMATOCRIT 31.0 % (37.0-47.0); HGB - HEMOGLOBIN 9.9 g/dL (12.0-16.0); MEAN PLATELET VOLUME 10.1 fL (7.9-10.8); PLT - PLATELET COUNT 183.0 10^3/uL (130-450); RED CELL DISTRIBUTION WIDTH 12.9 % (12.0-15.0)
[2025-03-23 05:13] LABS: BUN - BLOOD UREA NITROGEN 11.0 mg/dL (6-20); CARBON DIOXIDE - CO2 27.0 mmol/L (21-32); CREATININE 0.5 mg/dL (0.6-1.3); GFR - MDRD 118.0 (>89)
--- NOTE | 2025-03-23 07:38 | Discharge Summary ---
"Discharge Summary Admit Date: 03/22/25 Discharge Date: 03/23/25 Discharging Provider: Dr. Sendy Hernandez Primary Care Provider: Tennille Vega Code Status: Attempt Resuscitation Discharge Facility Name: Home, self care DIAGNOSES Discharge Diagnoses with Status of Each Condition: Influenza, sepsissepsis resolved. Leukocytosis resolved, has been afebrile for over 24 hours. Procalcitonin negative, no concern for superimposed pneumonia. Patient remains on room air. Patient remains with influenza. Continue Tamiflu, complete course. WeaknessPT recommends home. Dementiacontinue home trazodone. At baseline. HPI History of Present Illness: Per Dr. Hilary Doradord: 80-year-old female with a history of dementia presented with generalized weakness. Unable to ambulate and required assistance more than baseline. Normally amylase independently with assistive device. Has had decreased oral intake and a cough the past few days. Brought to the ED by her for evaluation. In the ED she was febrile, tachycardic, had a leukocytosis WBC 13,000, normal lactic acid. Chest x-ray was negative. However she did test positive for influenza A. EKG showed sinus tachycardia with left bundle branch block which is not new. She was given IV fluids, Tamiflu, also initially received a dose of ceftriaxone as part of sepsis management. Otherwise she does not can have any acute complaints. Past medical history: Dementia Past surgical history: She denied major surgeries Family history: Noncontributory to today's presentation Social history: Lives at home with her CONSULTS | PROCEDURES Consultations: Physical therapy Procedures: Chest x-rayno acute cardiopulmonary [id number]. HOSPITAL COURSE Hospital Course: Patient is a 80-year-old female with a history of dementia who presents with confusion, weakness, fevers and chills. She tested positive for influenza. She remained on room air. She was very dehydrated when she got here, and received IV fluid rehydration. She had a leukocytosis when she presented, and was febrile, which resolved. She was started on Tamiflu, which will be continued as an outpatient. Physical therapy worked with the patient, and recommended home health. She will need close follow-up with her primary care provider. She was discharged home in stable condition. ALLERGIES Allergies Allergy/AdvReac Type Severity Reaction Status Date / Time No Known Drug Allergies Allergy Verified 03/22/25 01:33 MEDICATIONS Ambulatory Orders Medication Instructions Recorded Confirmed donepezil 10 mg tablet 10 mg PO DAILY 03/22/2512/07 trazodone 100 mg tablet 100 mg PO QPM 03/22/2503/22 oseltamivir 75 mg capsule 75 mg PO BID #7 caps 5 PHYSICAL EXAM AT DISCHARGE Vital Signs: Vital Signs x48h Temp Pulse Resp BP Pulse Ox 03/23/25 10:50 98.1 F 74 18 124/56 L 100 03/23/25 07:58 98.2 F 82 18 130/54 L 100 General Appearance: positive No acute distress and Alert; negative Anxious Eyes Bilateral: positive Normal inspection, PERRL and EOMI ENT: positive ENT inspection nml, Pharynx nml and No signs of dehydration Neck: positive Nml inspection, Thyroid nml and No JVD Respiratory: positive Chest non-tender, No respiratory distress and Breath sounds nml; negative Wheezes, Rales or Rhonchi Cardiovascular: positive Regular rate & rhythm, No murmur and No gallop Peripheral Pulses: positive 2+ Abdomen: positive Non-tender, No organomegaly, Nml bowel sounds and No distention Back: positive Nml inspection; negative CVA tenderness (R) or CVA tenderness (L) Skin: positive Color nml, No rash, Warm and Dry Extremities: positive Non-tender, Full ROM, Nml appearance and No pedal edema Neurologic/Psychiatric: positive Motor nml, Mood/affect nml, Disoriented to time and Other (Expressive aphasia noted) LABS 03/23/25 04:23 03/23/25 04:23 SEPSIS Current Stage of Sepsis: Resolved Possible source of Sepsis: Pulmonary Sepsis Criteria: Suspected or Documented, Recorded Temperature greater than 38.3C or Less than 36C and WBC count greater than 12,000 or less than 4000 FOLLOW UP Follow Up: Follow-up with primary care provider. TIME SPENT Time Spent in Discharge (Minutes): 35 Discharge Plan Discharge Patient Disposition: Home, Self Care Prescriptions: New oseltamivir 75 mg Capsule 75 mg PO BID Qty: 7 0RF Continued donepezil 10 mg tablet 10 mg PO DAILY trazodone 100 mg tablet 100 mg PO QPM Diet: Regular Interventions: Belongings Inventory Last Done: 03/22/25 05:04 Discharge Last Done: 03/23/25 10:50 Discharge Checklist - Nursing Last Done: 03/23/25 10:56 Discharge Vital Signs (30 Minutes) Last Done: 03/23/25 10:50 Health Concerns: You have been diagnosed with influenza (the flu) and are being treated with oseltamivir (Tamiflu). - Take oseltamivir 75 mg by mouth twice daily for 5 days; you have 3 more days left of this. - You may take it with or without food, but taking it with food may help reduce stomach upset. - If you miss a dose, take it as soon as you remember unless it is within 2 hours of your next scheduled dose. In that case, skip the missed dose and continue with your regular schedule. - Complete the full 5-day course even if you start feeling better. What to Expect Oseltamivir works by stopping the flu virus from spreading in your body. When started early, it can: - Shorten your illness by about 1 day - Reduce the risk of complications like pneumonia[4] - Help you feel better faster The medication works best when started within 48 hours of when your symptoms began, but it can still provide benefit even if started later. Common side effects include: - Nausea and vomiting - Headache - Stomach pain When to Seek Immediate Medical Attention Stop taking oseltamivir and seek emergency care if you experience: - Severe allergic reactions such as rash, hives, swelling of the face or throat, or difficulty breathing - Unusual behavior or confusion, including hallucinations, agitation, or other neuropsychiatric symptoms Call your doctor if: - Your symptoms get worse or do not improve after a few days - You develop new symptoms such as difficulty breathing, chest pain, or persistent high fever - You experience signs of abnormal behavior while taking this medication Important Reminders - Oseltamivir is not a substitute for the annual flu vaccine. Continue to get your flu shot each year as recommended. - You may still be contagious even while taking this medication. Practice good hygiene by washing your hands frequently and covering coughs and sneezes. - Rest, drink plenty of fluids, and use [id number] medications as needed for fever and body aches. Follow-Up Care Contact your primary care provider if your symptoms worsen or if you have any concerns about your recovery. I am glad you are feeling better. It was a pleasure meeting you and Desmond. Thank you for allowing us to care for you! Best of luck. Print Language: Polish Patient Instructions: Flu and Cold: Nutrition, Prevention and Treatment Tips Stand Alone Forms: PCP List Follow-up Care: TENNILLE VEGA APRN [Primary Care Provider, Family Practice] Vitals documented within 30 minutes of discharge?: Yes (See DC VSs)"
[2025-03-23 07:59] VITALS: O2SAT 100
[2025-03-23 11:00] VITALS: BP 124/56; TEMP 98.1
== END 2025-03-23 10:58 | disposition home or self-care (01) ==
LOC: ED 01:10 → MS2 01:10
PROVIDERS: ADMIT Internal Medicine; ATTEND Internal Medicine